=== PATIENT | male | born 1965 | race Caucasian/White ===

== ENCOUNTER 2020-01-24 20:39 | Inpatient (IN) | payer OTHER ==
[2020-01-24 20:49] VITALS: BMI 32.3
[2020-01-24] MEDS ORDERED: methylPREDNISolone NA SUCC 125 MG/2 ML VIAL IVPUSH ONE (20:49)
--- NOTE | 2020-01-24 20:49 | PDOC ---
Rapid Medical Evaluation Time Seen by Provider: 01/24/20 20:45 Medical Evaluation: 01/24/20 20:45 Pt c/o:sob and wheezing since thia am, used neb and inhaler with no improvement Pt on brief exam: tachy, hypoxic, no accessory muscle usage, + exp wheeze neil Pt ordered for: duoneb x 3 , solumedrol Pt to proceed to the ED Discharge Disposition - Diagnosis Asthma Qualifiers: Asthma severity: moderate Asthma persistence: unspecified Asthma complication type: with acute exacerbation Qualified Code(s): J45.901 - Unspecified asthma with (acute) exacerbation - Referrals - Patient Instructions - Post Discharge Activity
[2020-01-24] MEDS ORDERED: methylPREDNISolone NA SUCC 125 MG/2 ML VIAL ONE (21:06)
[2020-01-24] MEDS ORDERED: ALBUTEROL SO4 2.5/IPRATROPIUM 0.5 INH SOL 3 ML VIAL.NEB. NEB ONE ×3 (21:06→23:14)
[2020-01-24] MEDS: ALBUTEROL SO4 2.5/IPRATROPIUM 0.5 INH SOL 3 ML VIAL.NEB. NEB SCH ×4 (21:09→22:23)
--- NOTE | 2020-01-24 21:12 | PDOC ---
History of Present Illness - General Chief Complaint: Shortness of Breath Stated Complaint: ASTHMA Time Seen by Provider: 01/24/20 20:45 History Source: Patient Exam Limitations: No Limitations - History of Present Illness Initial Comments: 01/24/20 21:29 54 yo M with a hx of asthma (no hx of intubation; last exacerbation 2 months ago) and HLD presents to the emergency department with SOB that began this AM. Per the patient, he states he felt SOB after awakening. He used his albuterol multiple times throughout the day without improvement. Denies recent travels but endorses recent sick contact (daughter has URI like symptoms for last 2-3 days). Endorses chest tightness and nausea. Denies the following: fevers, chills, ears/nose/throat pain, chest pain, back pain, dysuria, diarrhea, and leg pain/swelling. No recent travels, immobilizations, and surgeries. Denies new env ironmental allergies. Past History - Past Medical History Allergies/Adverse Reactions: Allergies Allergy/AdvReac Type Severity Reaction Status Date / Time No Known Allergies Allergy Verified 01/25/20 10:20 Home Medications: Ambulatory Orders Ibuprofen 600 mg PO Q6H PRN #14 tablet 04/24/16 Methadone [Dolophine -] 40 mg PO DAILY 04/24/16 Oxycodone HCl/Acetaminophen [Percocet 10-325 mg Tablet] 1 each PO QID 04/24/16 Tamsulosin HCl [Flomax] 0.4 mg PO DAILY #7 capsule 04/24/16 Asthma: Yes COPD: No Hypercholesterolemia: Yes - Psycho Social/Smoking Cessation Hx Smoking History: Former smoker Have you smoked in the past 12 months: No Information on smoking cessation initiated: No Review of Systems - Review of Systems Able to Perform ROS?: Yes Is the patient limited Yoruba proficient: No Constitutional: No: Chills, Diaphoresis, Fever, Weakness HEENTM: No: Eye Pain, Ear Pain, Nose Pain, Throat Pain, Mouth Pain Respiratory: Yes: Cough, Shortness of Breath, SOB at Rest, Wheezing. No: Productive cough, Hemoptysis Cardiac (ROS): Yes: Chest Tightness. No: Chest Pain, Lightheadedness, Palpitations ABD/GI: No: Constipated, Diarrhea, Nausea, Rectal Bleeding, Vomiting, Tarry Stools : No: Burning, Dysuria, Hematuria Musculoskeletal: No: Back Pain, Joint Pain, Neck Pain Integumentary: No: Bruising, Flushing, Rash Neurological: No: Headache, Numbness, Tingling, Tremors Psychiatric: No: Change in Appetite Endocrine: No: Unexplained Weight Loss Hematologic/Lymphatic: No: Anemia *Physical Exam - Vital Signs Last Vital Signs Temp Pulse Resp BP Pulse Ox 98.4 F 107 H 18 137/76 84 L 01/24/20 20:45 01/24/20 20:45 01/24/20 20:45 01/24/20 20:45 01/24/20 20:45 - Physical Exam General Appearance: Yes: Nourished, Appropriately Dressed, Obese. No: Apparent Distress, Intoxicated HEENT: positive: EOMI, YUDI, Normal Voice, Symmetrical, Pharynx Normal, Hearing Grossly Normal. negative: Pale Conjunctivae, Scleral Icterus (R), Scleral Icterus (L), Muffled/Hoarse voice, Pharyngeal Erythema, Tonsillar Exudate, Tonsillar Erythema, Nasal Congestion, Rhinorrhea, Sinus Tenderness, Excessive drooling Neck: positive: Trachea midline, Supple. negative: Tender, Lymphadenopathy (R), Lymphadenopathy (L) Respiratory/Chest: positive: Decreased Breath Sounds, Wheezing. negative: Chest Tender, Respiratory Distress, Accessory Muscle Use Cardiovascular: positive: Regular Rhythm, S1, S2, Tachycardia. negative: Systolic Murmur Gastrointestinal/Abdominal: positive: Normal Bowel Sounds, Flat, Soft. negative: Tender, Distended, Guarding, Rebound, Tenderness, Hernia Lymphatic: negative: Adenopathy Musculoskeletal: positive: Normal Inspection. negative: CVA Tenderness, Vertebral Tenderness Extremity: positive: Normal Capillary Refill, Normal Inspection, Normal Range of Motion. negative: Tender, Swelling, Calf Tenderness Integumentary: positive: Normal Color, Dry, Warm. negative: Swelling, Ecchymosis Neurologic: positive: Fully Oriented, Alert, Normal Mood/Affect, Motor Strength 5/5. negative: EOM Palsy, Facial Droop, Numbness ED Treatment Course - LABORATORY CBC & Chemistry Diagram: 01/25/20 07:03 01/25/20 07:03 Medical Decision Making - Medical Decision Making 54 yo M with a hx of asthma (no hx of intubation; last exacerbation 2 months ago) and HLD presents to the emergency department with SOB that began this AM. Initial vitals: Initial Vital Signs Temp Pulse Resp BP Pulse Ox 98.4 F 107 H 18 137/76 84 L 01/24/20 20:45 01/24/20 20:45 01/24/20 20:45 01/24/20 20:45 01/24/20 20:45 Work up: ddx: patient presents to the emergency department with SOB with hypoxia noted on RA. The patient was placed on a face mask with 10 L with duoneb with improvement to 96% O2. The patient will be worked up for asthma exacerbation causes. Patient was signed out to Dr. Naranjo At the time of sign out, the patient was given duoneb x4, soluderol, and 2 gram of magnesium with symptomatic improvement. Discharge - Discharge Information Problems reviewed: Yes Clinical Impression/Diagnosis: Asthma Qualifiers: Asthma severity: moderate Asthma persistence: unspecified Asthma complication type: with acute exacerbation Qualified Code(s): J45.901 - Unspecified asthma with (acute) exacerbation - Follow up/Referral - Patient Discharge Instructions - Post Discharge Activity
[2020-01-24] MEDS ORDERED: MAGNESIUM SULF 50% (8.12 MEQ/2 ML-1 GM VIAL) IVPB ONE (21:13)
--- NOTE | 2020-01-24 21:24 | PDOC ---
*Physical Exam - Vital Signs Last Vital Signs Temp Pulse Resp BP Pulse Ox 98.4 F 107 H 18 137/76 84 L 01/24/20 20:45 01/24/20 20:45 01/24/20 20:45 01/24/20 20:45 01/24/20 20:45 - Physical Exam 01/24/20 21:31 GENERAL: Awake, alert, and fully oriented, in no acute distress HEAD: No signs of trauma, normocephalic, atraumatic EYES: PERRLA, EOMI, sclera anicteric, conjunctiva clear ENT: Hearing grossly normal, nares patent, oropharynx clear without exudates. Moist mucosa NECK: Normal ROM, supple, no lymphadenopathy, JVD, or masses LUNGS: Diminished breath sounds at bases, scant exp wheezing. No distress, speaks full sentences. HEART: Regular rate and rhythm, normal S1 and S2, no murmurs, rubs or gallops, peripheral pulses normal and equal bilaterally. ABDOMEN: Soft, nontender, normoactive bowel sounds. No guarding, no rebound. No masses EXTREMITIES : Normal inspection, Normal range of motion, no edema. No clubbing or cyanosis NEUROLOGICAL: Cranial nerves II through XII grossly intact. Normal speech, normal gait, no focal sensorimotor deficits SKIN: Warm, Dry, normal turgor, no rashes or lesions noted ED Treatment Course - LABORATORY CBC & Chemistry Diagram: 01/24/20 21:30 01/24/20 21:30 Medical Decision Making - Medical Decision Making 01/24/20 21:21 54 yo M with h/o asthma, who p/w SOB, and cough. Patient endorsed by Dr. Chavez. Patient p/w SOB dry non productive cough, wheezing, and chest tightness x 1 day , not improved with home albuterol/steroid inhaler. HR 107, 84 % O2 RA, improved to 96 % with 10 L O2. Recent sick contact includes daughter with viral URI. No recent travels. Denies palpitations orthopena, PND, leg swelling/pain, N/V, F,C, urinary complaints, hematuria, BPR, abdominal pain, diarrhea, constipation, lightheadedness, weakness, sensory changes. low risk PE per wells criteria. ACS/NV r/o. Patient likely with acute asthma/ COPD exxacerbation. absent clinical evidence volume/fluid overload. R/o PNA. Will provide duoneb tx. and reassess. Ed Course: Magensium 2 mg , Duoneb, methylpred O2 99 % RA, lungs with scant exp wheezing, breathing non labored 01/24/20 21:44 01/24/20 22:34 Laboratory Tests 01/24/20 01/24/20 21:30 21:30 WBC 9.9 Hgb 14.9 Hct 44.7 Plt Count 296 Sodium 139 Potassium 4.2 BUN 11.3 Creatinine 0.7 Random Glucose 112 H 01/24/20 22:34 CXR: Unremarkable 01/24/20 23:15 Patient with continued exp wheezing, O2 90 % on RA, despite duoneb x 2, magnesium, methylpred plan to admit for continued asthma exacerbation 01/25/20 00:00 Patient endorsed to Lorna Kolb NP. Admit to Dr. Danny Choi/Rossy Babcock. Discharge - Discharge Information Problems reviewed: Yes Clinical Impression/Diagnosis: Asthma Qualifiers: Asthma severity: moderate Asthma persistence: unspecified Asthma complication type: with acute exacerbation Qualified Code(s): J45.901 - Unspecified asthma with (acute) exacerbation Condition: Stable - Admission Yes - Follow up/Referral Referrals: Sadiq Blair [Primary Care Provider] - - Patient Discharge Instructions Additional Instructions: Please return to the emergency department with any new or worsening symptoms or concerns. Please follow up with your primary care physician within 72 hours. - Post Discharge Activity
[2020-01-24 21:58] LABS: BASO % 0.8 % (0-2.0); EOS % 3.8 % (0-4.5); HEMATOCRIT 44.7 % (35.4-49); HEMOGLOBIN 14.9 GM/dL (11.7-16.9); MCH 31.1 pg (25.7-33.7); MCHC 33.4 g/dl (32.0-35.9); MEAN CELL VOLUME 93.3 fl (80-96); MEAN PLT VOLUME 7.6 fl (7.5-11.1); NEUT % 66.4 % (42.8-82.8); PLATELET COUNT 296 K/MM3 (134-434); RBC 4.79 M/mm3 (4.00-5.60); RDW 14.3 % (11.9-15.9); WHITE BLOOD COUNT 9.9 K/mm3 (4.0-10.0)
[2020-01-24] MEDS ORDERED: MAGNESIUM SULF 50% (8.12 MEQ/2 ML-1 GM VIAL) ONE (22:03)
[2020-01-24 22:14] LABS: INR 1.06 (0.83-1.09); PROTHROMBIN TIME (PATIENT) 12.5 SEC (9.7-13.0)
[2020-01-24 22:31] LABS: ALBUMIN 3.9 g/dl (3.4-5.0); BILIRUBIN,TOTAL 0.3 mg/dL (0.2-1); BLOOD UREA NITROGEN 11.3 mg/dL (7-18); CALCIUM 8.9 mg/dL (8.5-10.1); CREATININE 0.7 mg/dL (0.55-1.3); POTASSIUM 4.2 mmol/L (3.5-5.1); TOT PROT 7.6 g/dl (6.4-8.2)
--- NOTE | 2020-01-24 22:36 | PDOC ---
Attending Attestation - Resident Resident Name: KathyIan - ED Attending Attestation I have performed the following: I have examined & evaluated the patient, The case was reviewed & discussed with the resident, I agree w/resident's findings & plan, Exceptions are as noted - HPI HPI: 01/24/20 22:36 54 yo male h/o asthma here with sob. pt states he has frequent exacerbations. was here 2 mo ago for same. today started wheezing. does have sick contact of his neice who was sick. pt denies fever. no rash. no travel. no known riojas exposure. no leg swelling. no cp 01/25/20 00:16 - Physicial Exam PE: 01/25/20 2200 awake mild accessory m use. wheezing bilat lung padron. heart rrr no mrg abd soft nt nd ext wwp no edema. symmetric pulses bilaterally. nuero alert oriented x 3. - Medical Decision Making 01/25/20 00:18 54 yo male h/o asthma here with asthma exacerbation. afebrile. plan nebs magnesium, labs cxr. pt given serial nebs and steroids, mag, mild improvement, due to extreme presentation and hypoxic on presentation will admit.
--- NOTE | 2020-01-25 | HP ---
Admitting History and Physical - Primary Care Physician PCP: Danny Potter - Admission Chief Complaint: SOB, Wheezing History of Present Illness: This is a 54 y/o male with a PMHx of asthma (no hx of intubation; last exacerbation 2 months ago) and HLD presents to the emergency department with SOB that began this AM. Per the patient, he states he felt SOB after awakening. He used his albuterol multiple times throughout the day without improvement. Denies recent travels but endorses recent sick contact (daughter has URI like symptoms for last 2-3 days). Endorses chest tightness and nausea. Denies the following: fevers, chills, ears/nose/throat pain, chest pain, back pain, dysuria, diarrhea, and leg pain/swelling. No recent travels, immobilizations, and surgeries. Denies new environmental allergies. History Source: Patient Limitations to Obtaining History: No Limitations - Past Medical History Cardiovascular: Yes: Hyperlipdemia Pulmonary: Yes: Asthma - Smoking History Smoking history: Former smoker Have you smoked in the past 12 months: No Home Medications - Allergies Allergies/Adverse Reactions: Allergies Allergy/AdvReac Type Severity Reaction Status Date / Time No Known Allergies Allergy Verified 01/24/20 20:49 Family Medical History Family History: Unremarkable Review of Systems - Review of Systems Constitutional: reports: No Symptoms Eyes: reports: No Symptoms HENT: reports: No Symptoms Neck: reports: No Symptoms Cardiovascular: reports: Shortness of Breath Respiratory: reports: Cough, Exercise Intolerance, SOB, SOB on Exertion, Wheezing Gastrointestinal: reports: No Symptoms Genitourinary: reports: No Symptoms Breasts: reports: No Symptoms Reported Musculoskeletal: reports: No Symptoms Integumentary: reports: No Symptoms Neurological: reports: No Symptoms Endocrine: reports: No Symptoms Hematology/Lymphatic: reports: No Symptoms Psychiatric: reports: No Symptoms Physical Examination Vital Signs: Vital Signs Temperature 98.4 F 01/24/20 20:45 Pulse Rate 114 H 01/24/20 23:51 Respiratory Rate 18 01/24/20 20:45 Blood Pressure 144/89 01/24/20 23:51 O2 Sat by Pulse Oximetry (%) 83 L 01/24/20 23:51 Constitutional: Yes: Mild Distress, Obese Eyes: Yes: WNL, Conjunctiva Clear, EOM Intact, PERRL HENT: Yes: WNL, Atraumatic, Normocephalic Neck: Yes: WNL, Supple, Trachea Midline Cardiovascular: Yes: Tachycardia, S1, S2 Respiratory: Yes: Cough, On Nasal O2, Rhonchi, SOB, Tachypnea, Wheezes Gastrointestinal: Yes: WNL, Normal Bowel Sounds, Soft, Abdomen, Obese ...Rectal Exam: Yes: Deferred Renal/: Yes: WNL Breast(s): Yes: WNL Musculoskeletal: Yes: WNL Extremities: Yes: WNL Edema: No Neurological: Yes: WNL, Alert, Oriented ...Motor Strength: WNL Psychiatric: Yes: WNL, Alert, Oriented Labs: CBC, BMP 01/24/20 21:30 01/24/20 21:30 Laboratory Results - last 24 hr 01/24/20 01/24/20 01/24/20 21:30 21:30 21:30 WBC 9.9 RBC 4.79 Hgb 14.9 Hct 44.7 MCV 93.3 MCH 31.1 MCHC 33.4 RDW 14.3 Plt Count 296 MPV 7.6 Absolute Neuts (auto) 6.6 Neutrophils % 66.4 Lymphocytes % 22.0 Monocytes % 7.0 Eosinophils % 3.8 Basophils % 0.8 Nucleated RBC % 0 PT with INR INR Sodium 139 Potassium 4.2 Chloride 103 Carbon Dioxide 31 Anion Gap 6 L BUN 11.3 Creatinine 0.7 Est GFR (CKD-EPI)AfAm 122.27 Est GFR (CKD-EPI)NonAf 105.50 Random Glucose 112 H Calcium 8.9 Total Bilirubin 0.3 AST 23 ALT 43 Alkaline Phosphatase 106 Creatine Kinase 116 Troponin I < 0.02 Total Protein 7.6 Albumin 3.9 01/24/20 21:30 WBC RBC Hgb Hct MCV MCH MCHC RDW Plt Count MPV Absolute Neuts (auto) Neutrophils % Lymphocytes % Monocytes % Eosinophils % Basophils % Nucleated RBC % PT with INR 12.50 INR 1.06 Sodium Potassium Chloride Carbon Dioxide Anion Gap BUN Creatinine Est GFR (CKD-EPI)AfAm Est GFR (CKD-EPI)NonAf Random Glucose Calcium Total Bilirubin AST ALT Alkaline Phosphatase Creatine Kinase Troponin I Total Protein Albumin Intake & Output 01/22/20 01/23/20 01/24/20 01/25/20 23:59 23:59 23:59 23:59 Weight 90.718 kg Current Medications Generic Name Dose Route Start Last Admin Trade Name Freq PRN Reason Stop Dose Admin Albuterol/Ipratropium 1 amp 01/25/20 08:00 Duoneb - NEB RQID YASIR Methylprednisolone Sodium Succinate 40 mg 01/25/20 03:00 Solu-Medrol - IVPUSH Q6H-IV YASIR Imaging - Results Chest X-ray: Image Reviewed Cat Scan: Pending Problem List - Problems (1) Asthma exacerbation Assessment/Plan: Appreciate Pulm consult Chest Xray reviewed Duonebs, Solumederol, Magnesium Sulfate given in ED Will continue Duonebs Xopenox prn if patient is tachycardic Continue Solumederol w/taper Bipap O2 Peakflow CTA report- neg PE, no dissection, no infiltrates Code(s): J45.901 - UNSPECIFIED ASTHMA WITH (ACUTE) EXACERBATION (2) Acute respiratory failure with hypoxia Assessment/Plan: Likely secondary to Asthma Flare vs COPD vs PE vs Pneumonia Patient becomes severely hypoxic on RA suspicious for COPD ABG- 7.38/42.9/71.1/25.4/93.9 concerning for hypoxia Chest Xray image- no infiltrate no effusion noted CTA image and report reviewed- no PE, no aortic dissection, no infitrate BIPAP Appreciate Pulmonology consult Monitor CBC, BMP Patient counseled on smoking cessation Code(s): J96.01 - ACUTE RESPIRATORY FAILURE WITH HYPOXIA (3) Lactic acidosis Assessment/Plan: Likely due to Respiratory Failure vs Medication Blood Cultures-pending Urine and Urine Culture ordered NS bolus ordered Repeat Lactic Acid No leukocytosis no left shift Chest Xray- no infiltrate no effusion CTA- neg PE, Infiltrate Monitor vitals Code(s): E87.2 - ACIDOSIS (4) Elevated troponin Assessment/Plan: Likely secondary to Sepsis Patient denies CP or Palpitations Serial enzymes Consider Cardiology consult if condition worsens Code(s): R79.89 - OTHER SPECIFIED ABNORMAL FINDINGS OF BLOOD CHEMISTRY Assessment/Plan this is a 54 y/o male with a PMHx of Asthma, HLD. Admitted for Asthma Exacerbation, Acute Respiratory Failure with Hypoxia for further evaluation of their emergent condition. Plan: See Problem List FEN PO fluids as tolerated Replete lytes prn DVT ppx OOB SCDs Heparin SQ Dispo: Requires Inpatient Care Visit type - Emergency Visit Emergency Visit: Yes ED Registration Date: 01/24/20 Care time: The patient presented to the Emergency Department on the above date and was hospitalized for further evaluation of their emergent condition. - New Patient This patient is new to me today: Yes Date on this admission: 01/24/20 - Critical Care Critical Care patient: No
[2020-01-25] MEDS ORDERED: methylPREDNISolone NA SUCC 40 MG/1 ML VIAL IVPUSH SCH ×2 (03:00→09:00)
[2020-01-25] MEDS ORDERED: LEVALBUTEROL HCL 0.63 MG/3 ML VIAL.NEB. IH PRN ×2 (03:46→07:55)
[2020-01-25 04:01] LABS: ARTERIAL BLD GAS O2 SATURATION 93.9 % (95-98); ARTERIAL BLOOD GAS BASE EXCESS 0.7 meq/l (-2-2); ARTERIAL BLOOD GAS PCO2 42.9 mmHg (35-45); ARTERIAL BLOOD GAS PO2 71.1 mmHg (80-100); ARTERIAL BLOOD GAS pH 7.38 (7.35-7.45); CARBOXYHEMOGLOBIN 0.9 % (0-2)
[2020-01-25 04:02] LABS: ALLENS TEST POSITIVE
[2020-01-25] MEDS ORDERED: SODIUM CHLORIDE 1,000 ML IV ONE ×2 (05:15→07:55)
--- NOTE | 2020-01-25 07:19 | RAPID ---
Physical Examination Vital Signs: Rapid resposne paged overhead On arrival patient on BIPAP saturating 77%. As per nursing staff patient was rec eiving wide open IVF bolus, had received ~300cc fluid and began desaturating to 70-80s. BPs 130s/70s. Mild tachycardia to 110s. EKG showed sinus tach 109, no ischemic changes. On phys exam b/l wheezing, poor entry b/l, using access muscles but speaking full sentences, on BIPAP: I/E 12/6 Sats improved to 92% after a few minutes. Instructed nursing staff to hold fluid bolus. Plan: -Ordered stat ABG, trop, CBC/CMP with morning labs -Stat CXR -transfer to telemetry
[2020-01-25 07:28] LABS: BASO % 0.3 % (0-2.0); HEMOGLOBIN 15.6 GM/dL (11.7-16.9); LYMPH % 8.3 % (8-40); MCH 31.6 pg (25.7-33.7); MEAN CELL VOLUME 92.8 fl (80-96); MEAN PLT VOLUME 7.5 fl (7.5-11.1); MONO % 0.9 % (3.8-10.2); NEUT % 90.5 % (42.8-82.8); PLATELET COUNT 304 K/MM3 (134-434); RBC 4.96 M/mm3 (4.00-5.60); RDW 14.7 % (11.9-15.9)
[2020-01-25 07:48] LABS: ALBUMIN 4.1 g/dl (3.4-5.0); ALK PHOS 118 U/L (45-117); ANION GAP 9 MMOL/L (8-16); BILIRUBIN,TOTAL 0.5 mg/dL (0.2-1); BLOOD UREA NITROGEN 8.7 mg/dL (7-18); CALCIUM 8.7 mg/dL (8.5-10.1); CHLORIDE 105 mmol/L (98-107); CO2 27 mmol/L (21-32); CREATININE 0.7 mg/dL (0.55-1.3); GLUCOSE,RANDOM 150 mg/dL (74-106); MAGNESIUM 2.3 mg/dL (1.8-2.4); POTASSIUM 4.2 mmol/L (3.5-5.1); SGOT/AST 28 U/L (15-37); SGPT/ALT 46 U/L (13-61); SODIUM 140 mmol/L (136-145); TOT PROT 8.7 g/dl (6.4-8.2)
[2020-01-25] MEDS ORDERED: ALBUTEROL SO4 2.5/IPRATROPIUM 0.5 INH SOL 3 ML VIAL.NEB. NEB SCH (08:00)
[2020-01-25] MEDS ORDERED: PNEUMOC 13-VAL CONJ-DIP CRM/PF 0.5 ML DISP.SYRIN IM ONE (08:07)
[2020-01-25] MEDS: ALBUTEROL SO4 2.5/IPRATROPIUM 0.5 INH SOL 3 ML VIAL.NEB. NEB SCH ×4 (09:00→20:25)
[2020-01-25] MEDS ORDERED: AZITHROMYCIN IVPB 500 MG/250 ML BAG IVPB ONE (09:35)
--- NOTE | 2020-01-25 09:37 | PN ---
Progress Note, Physician Chief Complaint: AWAK ALERT ON BIPAP HERE IN TELEMETRY AFTER RAPID RESPONSE ON GRAVES 6 PATIENT IS AWAKE FEELS BETTER AND DENIES CHEST PAIN OR ABD PAIN LABS/CTA/CXR/ABG REVIEWED - Current Medication List Current Medications: Active Medications Albuterol/Ipratropium (Duoneb -) 1 amp NEB RQID [facility] Last Admin: 01/25/20 09:00 Dose: 1 amp Documented by: Levalbuterol HCl (Xopenex) 0.63 mg IH Q8H PRN PRN Reason: ASTHMA Methylprednisolone Sodium Succinate (Solu-Medrol -) 40 mg IVPUSH Q6H-IV YASIR Last Admin: 01/25/20 08:51 Dose: 40 mg Documented by: Pneumococcal Polyvalent Vaccine (Pneumovax -) 0.5 ml IM .ONCE ONE Stop: 01/25/20 10:01 - Objective Vital Signs: Vital Signs Temperature 98.7 F 01/25/20 08:10 Pulse Rate 127 H 01/25/20 08:10 Respiratory Rate 22 H 01/25/20 08:10 Blood Pressure 147/85 01/25/20 08:10 O2 Sat by Pulse Oximetry (%) 98 01/25/20 08:10 Constitutional: Yes: Mild Distress Cardiovascular: Yes: Regular Rate and Rhythm Respiratory: Yes: On BiPap, Rhonchi Gastrointestinal: Yes: WNL, Soft Genitourinary: Yes: WNL Musculoskeletal: Yes: WNL Extremities: Yes: WNL Edema: No Wound/Incision: Yes: Clean/Dry Neurological: Yes: WNL, Weakness Psychiatric: Yes: WNL Labs: CBC, BMP 01/25/20 07:03 01/25/20 07:03 INR, PTT INR 1.06 (0.83-1.09) 01/24/20 21:30 Problem List - Problems (1) Acute respiratory failure with hypoxia Code(s): J96.01 - ACUTE RESPIRATORY FAILURE WITH HYPOXIA (2) Asthma exacerbation Code(s): J45.901 - UNSPECIFIED ASTHMA WITH (ACUTE) EXACERBATION (3) Lactic acidosis Code(s): E87.2 - ACIDOSIS Assessment/Plan LABS REVIEWED LACTIC ACID STILL ELEVATED ADDING NS 100 CCHR CEFTRIAXONE/AZITHROMYCIN IV BIPAP NEEDED PULM EVAL OOB TO CHAIR DVT PROPHYLAXIS CTA NEGATIVE FOR PE, CXR NO ACUTE CHANGE LIKELY MUCUS PLUG?
[2020-01-25 09:45] LABS: EPI CELLS 0.5 /HPF (0-5/HPF); HYALINE CASTS 4 /lpf (0-8); URINE APPEARANCE CLEAR; URINE BACTERIA 0.3 /hpf (NEGATIVE); URINE BILIRUBIN NEGATIVE (NEGATIVE); URINE COLOR YELLOW; URINE GLUCOSE (UA) NEGATIVE (NEGATIVE); URINE KETONE TRACE (NEGATIVE); URINE LEUK ESTERASE NEGATIVE (NEGATIVE); URINE NITRITE NEGATIVE (NEGATIVE); URINE PROTEIN NEGATIVE (NEGATIVE); URINE RBC 2 /hpf (0-4); URINE UROBILINOGEN 0.2 mg/dL (0.2-1.0); URINE WBC 2 /hpf (0-5)
[2020-01-25] MEDS ORDERED: DEXTROSE 5%-WATER - 50 ML IVPB ONE (09:56)
[2020-01-25] MEDS ORDERED: cefTRIAXone SODIUM 1 GM VIAL ONE (09:56)
[2020-01-25] MEDS ORDERED: PNEUMOCOCCAL 23 VACCINE 0.5 ML VIAL IM ONE (10:00)
[2020-01-25] MEDS: SODIUM CHLORIDE 1,000 ML IV SCH ×2 (10:04→21:35)
[2020-01-25] MEDS: CEFTRIAXONE 1 GM in DEXTROSE 5%-WATER - 50 ML IVPB SCH (10:05)
[2020-01-25 10:18] LABS: ARTERIAL BLD GAS O2 SATURATION 98.8 % (95-98); ARTERIAL BLOOD GAS BASE EXCESS 0.4 meq/l (-2-2); ARTERIAL BLOOD GAS PCO2 55.5 mmHg (35-45); ARTERIAL BLOOD GAS PO2 167 mmHg (80-100); ARTERIAL BLOOD GAS pH 7.32 (7.35-7.45)
[2020-01-25 10:19] LABS: ALLENS TEST POSITIVE
[2020-01-25] MEDS ORDERED: METHADONE HCL 40 MG DISPERSABLE TABLET ONE (11:47)
[2020-01-25] MEDS ORDERED: METHADONE HCL 10 MG TABLET ONE (11:48)
[2020-01-25] MEDS: METHADONE 40 MG, METHADONE 10 MG PO SCH (11:57)
--- NOTE | 2020-01-25 12:50 | CON.PULM ---
Consult Consult Specialty:: PULM/CCM Referred by:: JOHAN Reason for Consultation:: SOB - History of Present Illness Chief Complaint: SOB History of Present Illness: 54 M, Mild Persistent Asthma (no hx of intubation; not steroid dependent; unknown PEF; last exacerbation 2 months ago) previous 20 pack year smoker that quit 20 years ago and HLD. Admitted via the ER due to SOB and wheezing x 1 day duration. No travel history or sick contacts. No fever or chills. No hemoptysis or night sweats. CTA: no PE / no acute lung pathology - History Source History Provided By: Patient Limitations to Obtaining History: No Limitations - Past Medical History Cardio/Vascular: Yes: Hyperlipdemia Pulmonary: Yes: Asthma, Bronchitis, Pneumonia. No: Cancer, COPD, O2 Dependent, Previously Intubated, Pulmonary Embolus, Pulmonary Fibrosis - Alcohol/Substance Use Hx Alcohol Use: Yes (Social) - Smoking History Smoking history: Former smoker Have you smoked in the past 12 months: No Home Medications - Allergies Allergies/Adverse Reactions: Allergies Allergy/AdvReac Type Severity Reaction Status Date / Time No Known Allergies Allergy Verified 01/25/20 10:20 - Home Medications Home Medications: Ambulatory Orders Ibuprofen 600 mg PO Q6H PRN #14 tablet 04/24/16 Methadone [Dolophine -] 40 mg PO DAILY 04/24/16 Oxycodone HCl/Acetaminophen [Percocet 10-325 mg Tablet] 1 each PO QID 04/24/16 Tamsulosin HCl [Flomax] 0.4 mg PO DAILY #7 capsule 04/24/16 Review of Systems - Review of Systems Constitutional: reports: Malaise. denies: Chills, Fever, Night Sweats Eyes: reports: No Symptoms HENT: reports: No Symptoms Neck: reports: No Symptoms Cardiovascular: reports: Shortness of Breath. denies: Chest Pain, Edema, Palpitations Respiratory: reports: Cough, Snoring, SOB, SOB on Exertion, Wheezing. denies: Hemoptysis, Orthopnea Gastrointestinal: reports: No Symptoms Genitourinary: reports: No Symptoms Breasts: reports: No Symptoms Reported Musculoskeletal: reports: No Symptoms Integumentary: reports: No Symptoms Neurological: reports: No Symptoms Endocrine: reports: No Symptoms Hematology/Lymphatic: reports: No Symptoms Psychiatric: reports: No Symptoms Physical Exam Vital Sings: Vital Signs Temperature 98.2 F 01/25/20 10:00 Pulse Rate 110 H 01/25/20 10:00 Respiratory Rate 24 H 01/25/20 10:00 Blood Pressure 141/83 01/25/20 10:00 O2 Sat by Pulse Oximetry (%) 98 01/25/20 09:00 Constitutional: Yes: Mild Distress Eyes: Yes: Conjunctiva Clear, EOM Intact HENT: Yes: Atraumatic, Normocephalic Neck: Yes: Supple, Trachea Midline Cardiovascular: Yes: Regular Rate and Rhythm Respiratory: Yes: Cough, On BiPap, Rhonchi, SOB, SOB on Exertion, Tachypnea, Wheezes. No: Accessory Muscle Use, Rales, Stridor ...Inspection: Yes: WNL ...Clubbing: No Gastrointestinal: Yes: Normal Bowel Sounds, Soft Breast(s): Yes: WNL Musculoskeletal: Yes: WNL Extremities: Yes: WNL Edema: No Peripheral Pulses WNL: Yes Integumentary: Yes: WNL Neurological: Yes: WNL, Alert, Oriented ...Motor Strength: WNL Psychiatric: Yes: WNL, Alert, Oriented Labs: CBC, BMP 01/25/20 07:03 01/25/20 07:03 ABG Results ABG pH 7.32 (7.35-7.45) L 01/25/20 08:10 ABG pH Cancelled 01/25/20 08:10 ABG pH Cancelled 01/25/20 08:10 ABG pCO2 at Pt Temp 55.5 mmHg (35-45) H 01/25/20 08:10 ABG pCO2 at Pt Temp Cancelled 01/25/20 08:10 ABG pCO2 at Pt Temp Cancelled 01/25/20 08:10 ABG pO2 at Pt Temp 167 mmHg (80-100) H 01/25/20 08:10 ABG pO2 at Pt Temp Cancelled 01/25/20 08:10 ABG pO2 at Pt Temp Cancelled 01/25/20 08:10 ABG HCO3 27.5 mmol/L (22-27) H 01/25/20 08:10 ABG HCO3 Cancelled 01/25/20 08:10 ABG HCO3 Cancelled 01/25/20 08:10 ABG O2 Sat (Measured) 98.8 % (95-98) H 01/25/20 08:10 ABG O2 Sat (Measured) Cancelled 01/25/20 08:10 ABG O2 Sat (Measured) Cancelled 01/25/20 08:10 ABG O2 Content 22.1 % vol 01/25/20 08:10 ABG O2 Content Cancelled 01/25/20 08:10 ABG O2 Content Cancelled 01/25/20 08:10 ABG Base Excess 0.4 meq/l (-2-2) 01/25/20 08:10 ABG Base Excess Cancelled 01/25/20 08:10 ABG Base Excess Cancelled 01/25/20 08:10 Imaging - Results Chest X-ray: Report Reviewed, Image Reviewed Cat Scan: Report Reviewed, Image Reviewed Problem List - Problems (1) Acute hypercapnic respiratory failure Code(s): J96.02 - ACUTE RESPIRATORY FAILURE WITH HYPERCAPNIA (2) Asthma Code(s): J45.909 - UNSPECIFIED ASTHMA, UNCOMPLICATED Qualifiers: Asthma severity: moderate Asthma persistence: unspecified Asthma comp lication type: with acute exacerbation Qualified Code(s): J45.901 - Unspecified asthma with (acute) exacerbation (3) Asthma exacerbation Code(s): J45.901 - UNSPECIFIED ASTHMA WITH (ACUTE) EXACERBATION (4) Elevated troponin Code(s): R79.89 - OTHER SPECIFIED ABNORMAL FINDINGS OF BLOOD CHEMISTRY Assessment/Plan NIPPV support IV Medrol BD TX standing and PRN Monitor off ABX once cultures are negative VTE prophylaxis No smoking was counseled Outpatient PFTs once stable Sleep Screen Cardiac telemetry monitoring Will follow Thank you. Dr Vinson VERONICA Screen - VERONICA History Previously diagnosed with Sleep Apnea: No If Yes, currently using CPAP to treat your VERONICA: No - SNORING Do you snore loudly (enough to be heard thru closed doors)?: Yes - TIRED Do you often feel tired, fatigued, or sleepy during daytime?: Yes - OBSERVED Has anyone observed you stop breathing during your sleep?: Yes - BLOOD PRESSURE Do you have or are being treated for high blood pressure?: No - BMI Answer Y if weight exceeds amount listed for your height: No .: HEIGHT & WEIGHT (lbs): 4'10" 167lbs; 4'11" 175 lbs; 5'0" 179lbs;. 5'1" 185lbs; 5'2" 191lbs; 5'3" 197lbs;. 5'4" 204lbs; 5'5" 210lbs; 5'6" 216lbs;. 5'7" 223lbs; 5'8" 230lbs; 5'9" 237lbs;. 5'10" 243lbs; 5'11" 250lbs; 6' 258lbs;. 6'1" 265lbs; 6'2" 272lbs; 6'3" 279lbs;. 6'4" 287lbs; 6'5" 295lbs - AGE Is your age over 50 yrs old?: Yes - NECK CIRCUMFERENCE Neck Circumference 40cm: No - GENDER Male: Yes - SCORE Total Score: 5 Score Interpretation: High Risk of VERONICA .: Interpretation: Score 0-2: Low Risk VERONICA. Score 3-4: Intermediate Risk VERONICA. Score 5-8: High Risk VERONICA
--- NOTE | 2020-01-25 13:59 | EKG ---
Test Reason : Blood Pressure : / mmHG Vent. Rate : 109 BPM Atrial Rate : 109 BPM P-R Int : 166 ms QRS Dur : 072 ms QT Int : 338 ms P-R-T Axes : 074 079 068 degrees QTc Int : 455 ms POOR DATA QUALITY, INTERPRETATION MAY BE ADVERSELY AFFECTED SINUS TACHYCARDIA POSSIBLE LEFT ATRIAL ENLARGEMENT BORDERLINE ECG WHEN COMPARED WITH ECG OF 25-JAN-2020 01:43, NO SIGNIFICANT CHANGE WAS FOUND Confirmed by QIANA BARNES, KURT ([id number]) on 01/25/2020 1:58:48 PM Referred By: Confirmed By:KURT KIRAN MD
--- NOTE | 2020-01-25 14:00 | EKG ---
Test Reason : Blood Pressure : / mmHG Vent. Rate : 096 BPM Atrial Rate : 096 BPM P-R Int : 170 ms QRS Dur : 074 ms QT Int : 386 ms P-R-T Axes : 074 065 068 degrees QTc Int : 487 ms NORMAL SINUS RHYTHM PROLONGED QT ABNORMAL ECG NO PREVIOUS ECGS AVAILABLE Confirmed by QIANA BARNES, KURT ([id number]) on 01/25/2020 1:59:26 PM Referred By: Confirmed By:KURT KIRAN MD
[2020-01-25] MEDS: methylPREDNISolone NA SUCC 40 MG/1 ML VIAL IVPUSH SCH ×2 (14:25→21:12)
[2020-01-26] MEDS: methylPREDNISolone NA SUCC 40 MG/1 ML VIAL IVPUSH SCH ×3 (03:07→17:57)
[2020-01-26] MEDS ORDERED: METHADONE HCL 10 MG TABLET ONE (05:23)
[2020-01-26] MEDS ORDERED: METHADONE HCL 40 MG DISPERSABLE TABLET ONE (05:23)
[2020-01-26] MEDS: METHADONE 40 MG, METHADONE 10 MG PO SCH (05:29)
[2020-01-26] MEDS: ALBUTEROL SO4 2.5/IPRATROPIUM 0.5 INH SOL 3 ML VIAL.NEB. NEB SCH ×4 (07:25→21:15)
[2020-01-26] MEDS ORDERED: DEXTROSE 5%-WATER - 50 ML IVPB ONE (09:00)
[2020-01-26] MEDS ORDERED: cefTRIAXone SODIUM 1 GM VIAL ONE (09:00)
[2020-01-26] MEDS: SODIUM CHLORIDE 1,000 ML IV SCH ×2 (09:13→21:00)
[2020-01-26] MEDS: CEFTRIAXONE 1 GM in DEXTROSE 5%-WATER - 50 ML IVPB SCH (09:14)
--- NOTE | 2020-01-26 10:44 | PN ---
Progress Note, Physician History of Present Illness: pulmonary alert,feeling better,less dyspneic on nasal O2 - Current Medication List Current Medications: Active Medications Albuterol/Ipratropium (Duoneb -) 1 amp NEB RQID [facility] Last Admin: 01/26/20 07:25 Dose: 1 amp Documented by: Ceftriaxone Sodium 1 gm/ (Dextrose) 50 mls @ 200 mls/hr IVPB DAILY [facility]; Protocol Last Admin: 01/26/20 09:14 Dose: 200 mls/hr Documented by: Sodium Chloride (Normal Saline -) 1,000 mls @ 100 mls/hr IV ASDIR [facility] Last Admin: 01/26/20 09:13 Dose: 100 mls/hr Documented by: Levalbuterol HCl (Xopenex) 0.63 mg IH Q8H PRN PRN Reason: ASTHMA Methadone HCl 40 mg/ Methadone (HCl 10 mg) 50 mg PO 0600 [facility] Last Admin: 01/26/20 05:29 Dose: 50 mg Documented by: Methylprednisolone Sodium Succinate (Solu-Medrol -) 60 mg IVPUSH Q6H-IV [facility] Last Admin: 01/26/20 09:14 Dose: 60 mg Documented by: - Objective Vital Signs: Vital Signs Temperature 98.6 F 01/26/20 09:07 Pulse Rate 101 H 01/26/20 09:07 Respiratory Rate 20 01/26/20 09:07 Blood Pressure 120/74 01/26/20 09:07 O2 Sat by Pulse Oximetry (%) 97 01/26/20 08:29 Constitutional: Yes: Well Nourished, Calm Eyes: Yes: WNL HENT: Yes: WNL Neck: Yes: WNL Cardiovascular: Yes: Regular Rate and Rhythm, S1, S2 Respiratory: Yes: Wheezes (SCATTERED SHANTANU WHEEZES) Gastrointestinal: Yes: Normal Bowel Sounds, Soft Extremities: Yes: WNL Edema: No Labs: CBC, BMP Problem List - Problems (1) Lactic acidosis Code(s): E87.2 - ACIDOSIS Assessment/Plan Problem List - Problems (1) Acute hypercapnic respiratory failure Code(s): J96.02 - ACUTE RESPIRATORY FAILURE WITH HYPERCAPNIA (2) Asthma Code(s): J45.909 - UNSPECIFIED ASTHMA, UNCOMPLICATED Qualifiers: Asthma severity: moderate Asthma persistence: unspecified Asthma complication type: with acute exacerbation Qualified Code(s): J45.901 - Unspecified asthma with (acute) exacerbation (3) Asthma exacerbation Code(s): J45.901 - UNSPECIFIED ASTHMA WITH (ACUTE) EXACERBATION (4) Elevated troponin Code(s): R79.89 - OTHER SPECIFIED ABNORMAL FINDINGS OF BLOOD CHEMISTRY 5 ELEVATED LACTATE LEVEL Assessment/Plan NIPPV support as needed IV Medrol taper BD TX standing and PRN VTE prophylaxis No smoking was counseled Outpatient PFTs once stable Trend lactate Sleep Screen DR RAGLAND
[2020-01-26] MEDS ORDERED: PT OWN MED DRAWER 7, Y5N ONE (12:54)
--- NOTE | 2020-01-26 13:10 | PN ---
Progress Note, Physician Chief Complaint: AWAKE ALERT\FEELS BETTER SOB CONTROLLED ON NC 4L - Current Medication List Current Medications: Active Medications Albuterol/Ipratropium (Duoneb -) 1 amp NEB RQID [facility] Last Admin: 01/26/20 11:21 Dose: 1 amp Documented by: Ceftriaxone Sodium 1 gm/ (Dextrose) 50 mls @ 200 mls/hr IVPB DAILY [facility]; Protocol Last Admin: 01/26/20 09:14 Dose: 200 mls/hr Documented by: Sodium Chloride (Normal Saline -) 1,000 mls @ 100 mls/hr IV ASDIR [facility] Last Admin: 01/26/20 09:13 Dose: 100 mls/hr Documented by: Azithromycin 250 mg/ Dextrose 250 mls @ 250 mls/hr IVPB DAILY [facility] Levalbuterol HCl (Xopenex) 0.63 mg IH Q8H PRN PRN Reason: ASTHMA Methadone HCl 40 mg/ Methadone (HCl 10 mg) 50 mg PO 0600 [facility] Last Admin: 01/26/20 05:29 Dose: 50 mg Documented by: Methylprednisolone Sodium Succinate (Solu-Medrol -) 60 mg IVPUSH Q8H-IV [facility] - Objective Vital Signs: Vital Signs Temperature 98.6 F 01/26/20 09:07 Pulse Rate 101 H 01/26/20 09:07 Respiratory Rate 20 01/26/20 09:07 Blood Pressure 120/74 01/26/20 09:07 O2 Sat by Pulse Oximetry (%) 97 01/26/20 09:00 Constitutional: Yes: Mild Distress Cardiovascular: Yes: Regular Rate and Rhythm Respiratory: Yes: Wheezes Gastrointestinal: Yes: Soft Genitourinary: Yes: WNL Musculoskeletal: Yes: Muscle Weakness Edema: No Neurological: Yes: WNL Labs: CBC, BMP 01/25/20 07:03 01/25/20 07:03 INR, PTT INR 1.06 (0.83-1.09) 01/24/20 21:30 Problem List - Problems (1) Asthma exacerbation Code(s): J45.901 - UNSPECIFIED ASTHMA WITH (ACUTE) EXACERBATION (2) Acute respiratory failure with hypoxia Code(s): J96.01 - ACUTE RESPIRATORY FAILURE WITH HYPOXIA (3) Lactic acidosis Code(s): E87.2 - ACIDOSIS Assessment/Plan O2 SUPPORT PULMONARY CONSULT APPRECIATED IV STEROIDS IV CEFTRIAXONE/AZITHROMYCIN NEBS OOB TO CHAIR DVT PROPHYLAXIS
[2020-01-26] MEDS: AZITHROMYCIN IVPB 250 MG in DEXTROSE 5%-WATER - 250 ML IVPB SCH (14:52)
[2020-01-27] MEDS: methylPREDNISolone NA SUCC 40 MG/1 ML VIAL IVPUSH SCH ×3 (01:34→17:21)
[2020-01-27] MEDS ORDERED: METHADONE HCL 40 MG DISPERSABLE TABLET ONE (05:17)
[2020-01-27] MEDS ORDERED: METHADONE HCL 10 MG TABLET ONE (05:18)
[2020-01-27] MEDS: METHADONE 40 MG, METHADONE 10 MG PO SCH (06:00)
[2020-01-27] MEDS: SODIUM CHLORIDE 1,000 ML IV SCH ×2 (07:00→09:34)
[2020-01-27 07:48] LABS: HEMATOCRIT 41.5 % (35.4-49); HEMOGLOBIN 13.9 GM/dL (11.7-16.9); MCH 31.5 pg (25.7-33.7); MCHC 33.5 g/dl (32.0-35.9); MEAN PLT VOLUME 7.8 fl (7.5-11.1); PLATELET COUNT 292 K/MM3 (134-434); RBC 4.42 M/mm3 (4.00-5.60); RDW 14.8 % (11.9-15.9); WHITE BLOOD COUNT 20.5 K/mm3 (4.0-10.0)
[2020-01-27] MEDS: ALBUTEROL SO4 2.5/IPRATROPIUM 0.5 INH SOL 3 ML VIAL.NEB. NEB SCH ×4 (07:57→20:00)
[2020-01-27 08:07] LABS: BLOOD UREA NITROGEN 12.9 mg/dL (7-18); CALCIUM 8.5 mg/dL (8.5-10.1); CREATININE 0.5 mg/dL (0.55-1.3); POTASSIUM 4.4 mmol/L (3.5-5.1)
[2020-01-27] MEDS ORDERED: PT OWN MED DRAWER 7, Y5N ONE ×2 (09:31→11:20)
[2020-01-27] MEDS ORDERED: DEXTROSE 5%-WATER - 50 ML IVPB ONE (09:31)
[2020-01-27] MEDS ORDERED: cefTRIAXone SODIUM 1 GM VIAL ONE (09:31)
[2020-01-27] MEDS: CEFTRIAXONE 1 GM in DEXTROSE 5%-WATER - 50 ML IVPB SCH (09:34)
--- NOTE | 2020-01-27 09:57 | PN ---
Progress Note, Physician History of Present Illness: C/O COUGH BETTER - Current Medication List Current Medications: Active Medications Albuterol/Ipratropium (Duoneb -) 1 amp NEB RQID [facility] Last Admin: 01/26/20 21:15 Dose: 1 amp Documented by: Ceftriaxone Sodium 1 gm/ (Dextrose) 50 mls @ 200 mls/hr IVPB DAILY [facility]; Protocol Last Admin: 01/27/20 09:34 Dose: 200 mls/hr Documented by: Sodium Chloride (Normal Saline -) 1,000 mls @ 100 mls/hr IV ASDIR [facility] Last Admin: 01/27/20 09:34 Dose: 100 mls/hr Documented by: Azithromycin 250 mg/ Dextrose 250 mls @ 250 mls/hr IVPB DAILY [facility] Last Admin: 01/26/20 14:52 Dose: 250 mls/hr Documented by: Levalbuterol HCl (Xopenex) 0.63 mg IH Q8H PRN PRN Reason: ASTHMA Methadone HCl 40 mg/ Methadone (HCl 10 mg) 50 mg PO 0600 [facility] Last Admin: 01/27/20 06:00 Dose: 50 mg Documented by: Methylprednisolone Sodium Succinate (Solu-Medrol -) 60 mg IVPUSH Q8H-IV [facility] Last Admin: 01/27/20 09:34 Dose: 60 mg Documented by: - Objective Vital Signs: Vital Signs Temperature 98.2 F 01/27/20 06:00 Pulse Rate 83 01/27/20 06:00 Respiratory Rate 18 01/27/20 06:00 Blood Pressure 120/84 01/27/20 06:00 O2 Sat by Pulse Oximetry (%) 96 01/26/20 21:00 Cardiovascular: Yes: S1, S2 Respiratory: Yes: On Nasal O2, Rhonchi, Wheezes Gastrointestinal: Yes: Normal Bowel Sounds, Soft Labs: CBC, BMP 01/27/20 06:56 01/27/20 06:56 INR, PTT INR 1.06 (0.83-1.09) 01/24/20 21:30 Problem List - Problems (1) Asthma exacerbation Assessment/Plan: IV STEROIDS NEBS ON IV ABX CT NOTED --NO ACUTE PATH PULM ON CASE Code(s): J45.901 - UNSPECIFIED ASTHMA WITH (ACUTE) EXACERBATION (2) Acute hypercapnic respiratory failure Assessment/Plan: ABOVE FLU SWAB Code(s): J96.02 - ACUTE RESPIRATORY FAILURE WITH HYPERCAPNIA (3) Lactic acidosis Assessment/Plan: IMPROVED Code(s): E87.2 - ACIDOSIS
--- NOTE | 2020-01-27 11:20 | PN ---
Progress Note (short form) - Note Progress Note: PULMONARY COUGH/WHEEZE VSS/AFEBRILE Constitutional: Yes: Well Nourished, Calm Eyes: Yes: WNL HENT: Yes: WNL Neck: Yes: WNL Cardiovascular: Yes: Regular Rate and Rhythm, S1, S2 Respiratory: Yes: Wheezes (SCATTERED SHANTANU WHEEZES) Gastrointestinal: Yes: Normal Bowel Sounds, Soft Extremities: Yes: WNL Edema: No LABS/MEDS/NOTES/IMAGES REVIEWED - Problems (1) Acute hypercapnic respiratory failure Code(s): J96.02 - ACUTE RESPIRATORY FAILURE WITH HYPERCAPNIA (2) Asthma Code(s): J45.909 - UNSPECIFIED ASTHMA, UNCOMPLICATED Qualifiers: Asthma severity: moderate Asthma persistence: unspecified Asthma complication type: with acute exacerbation Qualified Code(s): J45.901 - Unspecified asthma with (acute) exacerbation (3) Asthma exacerbation Code(s): J45.901 - UNSPECIFIED ASTHMA WITH (ACUTE) EXACERBATION (4) Elevated troponin Code(s): R79.89 - OTHER SPECIFIED ABNORMAL FINDINGS OF BLOOD CHEMISTRY NIPPV PRN IV Medrol Continue Bronchodilators VTE prophylaxis No smoking was counseled Outpatient PFTs once stable Trend lactate Sleep Screen Roe AVERY MD
[2020-01-27] MEDS: AZITHROMYCIN IVPB 250 MG in DEXTROSE 5%-WATER - 250 ML IVPB SCH (11:27)
[2020-01-28] MEDS: methylPREDNISolone NA SUCC 40 MG/1 ML VIAL IVPUSH SCH ×2 (03:30→09:47)
[2020-01-28] MEDS ORDERED: METHADONE HCL 40 MG DISPERSABLE TABLET ONE (06:08)
[2020-01-28] MEDS ORDERED: METHADONE HCL 10 MG TABLET ONE (06:08)
[2020-01-28] MEDS: METHADONE 40 MG, METHADONE 10 MG PO SCH (06:37)
[2020-01-28 08:02] LABS: BASO % 0.1 % (0-2.0); HEMATOCRIT 41.1 % (35.4-49); HEMOGLOBIN 13.7 GM/dL (11.7-16.9); LYMPH % 7.9 % (8-40); MCH 31.5 pg (25.7-33.7); MCHC 33.5 g/dl (32.0-35.9); MEAN CELL VOLUME 94.2 fl (80-96); MEAN PLT VOLUME 7.9 fl (7.5-11.1); MONO % 6.5 % (3.8-10.2); NEUT % 85.5 % (42.8-82.8); PLATELET COUNT 279 K/MM3 (134-434); RBC 4.36 M/mm3 (4.00-5.60); RDW 14.9 % (11.9-15.9)
[2020-01-28] MEDS: ALBUTEROL SO4 2.5/IPRATROPIUM 0.5 INH SOL 3 ML VIAL.NEB. NEB SCH ×4 (08:10→21:10)
[2020-01-28] MEDS ORDERED: cefTRIAXone SODIUM 1 GM VIAL ONE (09:35)
[2020-01-28] MEDS ORDERED: DEXTROSE 5%-WATER - 50 ML IVPB ONE (09:35)
[2020-01-28] MEDS ORDERED: PT OWN MED DRAWER 7, Y5N ONE (09:35)
[2020-01-28] MEDS: CEFTRIAXONE 1 GM in DEXTROSE 5%-WATER - 50 ML IVPB SCH (09:47)
--- NOTE | 2020-01-28 11:22 | PN ---
Progress Note, Physician - Current Medication List Current Medications: Active Medications Albuterol/Ipratropium (Duoneb -) 1 amp NEB RQID [facility] Last Admin: 01/28/20 08:10 Dose: 1 amp Documented by: Ceftriaxone Sodium 1 gm/ (Dextrose) 50 mls @ 200 mls/hr IVPB DAILY [facility]; Protocol Last Admin: 01/28/20 09:47 Dose: 200 mls/hr Documented by: Sodium Chloride (Normal Saline -) 1,000 mls @ 100 mls/hr IV ASDIR [facility] Last Admin: 01/27/20 09:34 Dose: 100 mls/hr Documented by: Azithromycin 250 mg/ Dextrose 250 mls @ 250 mls/hr IVPB DAILY [facility] Last Admin: 01/27/20 11:27 Dose: 250 mls/hr Documented by: Levalbuterol HCl (Xopenex) 0.63 mg IH Q8H PRN PRN Reason: ASTHMA Methadone HCl 40 mg/ Methadone (HCl 10 mg) 50 mg PO 0600 [facility] Last Admin: 01/28/20 06:37 Dose: 50 mg Documented by: Methylprednisolone Sodium Succinate (Solu-Medrol -) 60 mg IVPUSH Q8H-IV [facility] Last Admin: 01/28/20 09:47 Dose: 60 mg Documented by: - Objective Vital Signs: Vital Signs Temperature 98.3 F 01/28/20 08:16 Pulse Rate 84 01/28/20 08:16 Respiratory Rate 20 01/28/20 09:00 Blood Pressure 137/98 01/28/20 08:16 O2 Sat by Pulse Oximetry (%) 97 01/28/20 09:00 Cardiovascular: Yes: S1, S2 Respiratory: Yes: Wheezes Gastrointestinal: Yes: Normal Bowel Sounds, Soft Labs: CBC, BMP 01/28/20 05:56 01/27/20 06:56 INR, PTT INR 1.06 (0.83-1.09) 01/24/20 21:30 Problem List - Problems (1) Asthma exacerbation Assessment/Plan: IV STEROIDS NEBS ON IV ABX CT NOTED --NO ACUTE PATH PULM ON CASE Code(s): J45.901 - UNSPECIFIED ASTHMA WITH (ACUTE) EXACERBATION (2) Acute hypercapnic respiratory failure Assessment/Plan: ABOVE FLU SWAB Code(s): J96.02 - ACUTE RESPIRATORY FAILURE WITH HYPERCAPNIA (3) Lactic acidosis Assessment/Plan: IMPROVED Code(s): E87.2 - ACIDOSIS
--- NOTE | 2020-01-28 12:19 | PN ---
Progress Note (short form) - Note Progress Note: PULMONARY COUGH/WHEEZE MUCH IMPROVED VSS/AFEBRILE Constitutional: Yes: Well Nourished, Calm Eyes: Yes: WNL HENT: Yes: WNL Neck: Yes: WNL Cardiovascular: Yes: Regular Rate and Rhythm, S1, S2 Respiratory: Yes: Wheezes (SCATTERED SHANTANU WHEEZES) Gastrointestinal: Yes: Normal Bowel Sounds, Soft Extremities: Yes: WNL Edema: No LABS/MEDS/NOTES/IMAGES REVIEWED - Problems (1) Acute hypercapnic respiratory failure Code(s): J96.02 - ACUTE RESPIRATORY FAILURE WITH HYPERCAPNIA (2) Asthma Code(s): J45.909 - UNSPECIFIED ASTHMA, UNCOMPLICATED Qualifiers: Asthma severity: moderate Asthma persistence: unspecified Asthma complication type: with acute exacerbation Qualified Code(s): J45.901 - Unspecified asthma with (acute) exacerbation (3) Asthma exacerbation Code(s): J45.901 - UNSPECIFIED ASTHMA WITH (ACUTE) EXACERBATION (4) Elevated troponin Code(s): R79.89 - OTHER SPECIFIED ABNORMAL FINDINGS OF BLOOD CHEMISTRY NIPPV PRN IV Medrol Changed to oral prednisone` Bronchodilators VTE prophylaxis No smoking was counseled Outpatient PFTs once stable Discharge planning Sleep Screen Roe AVERY MD
[2020-01-28] MEDS: AZITHROMYCIN IVPB 250 MG in DEXTROSE 5%-WATER - 250 ML IVPB SCH (12:30)
[2020-01-28] MEDS: predniSONE 20 MG TABLET (UD) PO SCH (14:59)
[2020-01-29 01:24] VITALS: TEMP 97.7
[2020-01-29] MEDS ORDERED: METHADONE HCL 40 MG DISPERSABLE TABLET ONE (06:04)
[2020-01-29] MEDS ORDERED: METHADONE HCL 10 MG TABLET ONE (06:04)
[2020-01-29] MEDS: METHADONE 40 MG, METHADONE 10 MG PO SCH (06:17)
[2020-01-29] MEDS: SODIUM CHLORIDE 1,000 ML IV SCH (06:18)
[2020-01-29] MEDS: ALBUTEROL SO4 2.5/IPRATROPIUM 0.5 INH SOL 3 ML VIAL.NEB. NEB SCH (08:38)
--- NOTE | 2020-01-29 08:49 | DS ---
Physical Examination Vital Signs: Vital Signs Temperature 97.7 F 01/29/20 01:24 Pulse Rate 68 01/29/20 05:31 Respiratory Rate 20 01/29/20 05:31 Blood Pressure 130/78 01/29/20 05:31 O2 Sat by Pulse Oximetry (%) 94 L 01/28/20 20:47 Findings/Remarks: FEELING BETTER Constitutional: Yes: Mild Distress Eyes: Yes: WNL HENT: Yes: WNL Neck: Yes: WNL Cardiovascular: Yes: Regular Rate and Rhythm Respiratory: Yes: CTA Bilaterally Gastrointestinal: Yes: Soft Musculoskeletal: Yes: Muscle Weakness Edema: No Integumentary: Yes: WNL Wound/Incision: Yes: Clean/Dry Neurological: Yes: WNL ...Motor Strength: WNL Psychiatric: Yes: WNL Labs: CBC, BMP 01/28/20 05:56 01/27/20 06:56 Discharge Summary Problems reviewed: Yes Reason For Visit: ASTHMA Current Active Problems Acute hypercapnic respiratory failure (Acute) Acute respiratory failure with hypoxia (Acute) Asthma (Acute) Asthma exacerbation (Acute) Elevated troponin (Acute) Lactic acidosis (Acute) Procedures: Principal: CXR/LABS Hospital Course: ADMITTED SEVERE COPD EXACERBATION, TREATED IV STEROIDS, ABX, BIPAP FOR RESP SUPPORT, CAN FOLLOW OUT PATIENT WITH PULMONARY Goals: SEE YOUR DOCTOR IN 2-3 DAYS - Instructions Diet, Activity, Other Instructions: OUTPATIENT SLEEP STUDY/PFT WITH DR RAGLAND SEE DR BLAIR IN 2-3 DAYS Referrals: Sadiq Blair [Primary Care Provider] - Disposition: HOME - Home Medications Comprehensive Discharge Medication List: Ambulatory Orders Ibuprofen 600 mg PO Q6H PRN #14 tablet 04/24/16 Methadone [Dolophine -] 40 mg PO DAILY 04/24/16 Oxycodone HCl/Acetaminophen [Percocet 10-325 mg Tablet] 1 each PO QID 04/24/16 Tamsulosin HCl [Flomax -] 0.4 mg PO DAILY #7 capsule 04/24/16 Albuterol 2.5/Ipratropium 0.5 [Duoneb -] 1 amp NEB RQID #1 box 01/29/20 Methadone [Dolophine -] 50 mg PO 0600 tablet 01/29/20 predniSONE [Deltasone -] See Taper PO DAILY #40 tablet 01/29/20
[2020-01-29] MEDS ORDERED: PNEUMOC 13-VAL CONJ-DIP CRM/PF 0.5 ML DISP.SYRIN IM ONE (09:16)
[2020-01-29] MEDS ORDERED: cefTRIAXone SODIUM 1 GM VIAL ONE (09:33)
[2020-01-29] MEDS ORDERED: DEXTROSE 5%-WATER - 50 ML IVPB ONE (09:33)
[2020-01-29] MEDS: CEFTRIAXONE 1 GM in DEXTROSE 5%-WATER - 50 ML IVPB SCH (09:38)
[2020-01-29] MEDS: predniSONE 20 MG TABLET (UD) PO SCH (09:38)
[2020-01-29 09:52] VITALS: BP 122/78; PULSE 102
[2020-01-29] MEDS: AZITHROMYCIN IVPB 250 MG in DEXTROSE 5%-WATER - 250 ML IVPB SCH (10:30)
[2020-01-29] MEDS ORDERED: PNEUMOCOCCAL 23 VACCINE 0.5 ML VIAL IM ONE (11:00)
--- NOTE | 2020-01-29 12:45 | PN ---
Progress Note (short form) - Note Progress Note: PULMONARY States breathing close to baseline. Has been ambulating without dyspnea. Vital Signs Period Temp Pulse Resp BP Sys/Schuster Pulse Ox Last 24 Hr 97.7 F-98.1 F 68-102 20-20 119-153/74-94 94-99 Gen: NAD at rest Heart: RRR Lung: scattered wheeze Abd: soft, nontender Ext: no edema CBC, BMP 01/28/20 05:56 01/27/20 06:56 Active Medications Albuterol/Ipratropium (Duoneb -) 1 amp NEB RQID [facility] Last Admin: 01/29/20 08:38 Dose: 1 amp Documented by: Sodium Chloride (Normal Saline -) 1,000 mls @ 100 mls/hr IV ASDIR [facility] Last Admin: 01/29/20 06:18 Dose: 100 mls/hr Documented by: Levalbuterol HCl (Xopenex) 0.63 mg IH Q8H PRN PRN Reason: ASTHMA Methadone HCl 40 mg/ Methadone (HCl 10 mg) 50 mg PO 0600 [facility] Last Admin: 01/29/20 06:17 Dose: 50 mg Documented by: Prednisone (Deltasone -) 40 mg PO DAILY [facility] Last Admin: 01/29/20 09:38 Dose: 40 mg Documented by: A/P Acute Asthma Exacerbation Lactic Acidosis Methadone Maintenance - prednisone taper - inhaled bronchodilators - O2 to keep SpO2 >90% - DVT prophylaxis
== END 2020-01-29 13:04 | disposition home or self-care (01) | DRG 140 ==
LOC: JER 20:39 → JERBED 23:16 → MERGE 23:16 → J5S 01-25 03:43 → J4W 01-25 07:50
PROVIDERS: ADMIT Family Medicine; ATTEND Family Medicine
PROC: 5A0955Z Assistance with Respiratory Ventilation, Greater than 96 Consecutive Hours (ICD-10-PCS; principal; 2020-01-24)
DX: J44.1 Chronic obstructive pulmonary disease with (acute) exacerbation (principal); J45.41 Moderate persistent asthma with (acute) exacerbation; J96.01 Acute respiratory failure with hypoxia; R79.89 Other specified abnormal findings of blood chemistry; E87.2 Acidosis; J96.02 Acute respiratory failure with hypercapnia; E78.5 Hyperlipidemia, unspecified; E66.9 Obesity, unspecified; Z68.32 Body mass index [BMI] 32.0-32.9, adult; R00.0 Tachycardia, unspecified
CPT/HCPCS: 36415; 36600; 71045-TC-FY; 71275-TC; 80048; 80053; 81003; 82375; 82550; 82803; 83050; 83605; 83735; 84443; 84484; 85025; 85027; 85610; 87040; 87086; 87804; 90732; 93005; 93010; 94640; 94660; 99285-25; G0009; J7030

== ENCOUNTER 2020-08-21 09:32 | Observation (INO) | payer OTHER ==
[2020-08-21] MEDS ORDERED: ALBUTEROL SO4 2.5/IPRATROPIUM 0.5 INH SOL 3 ML VIAL.NEB. NEB ONE ×2 (09:41→10:25)
[2020-08-21] MEDS ORDERED: DEXAMETHASONE SOD PHOSPHATE 10 MG/1 ML VIAL ONE (09:42)
--- OUTSIDE RECORDS SUMMARY | 2020-08-21 10:02 | XMS ---
:1965 Author Organization [facility] Care Team Providers Name Role Phone Heidi Hernandez Unavailable Unavailable Aszalos, Margareth Unavailable Unavailable Aszalos, Margareth Unavailable Unavailable Aszalos, Margareth Unavailable Unavailable Aszalos, Margareth Unavailable Unavailable Aszalos, Margareth Unavailable Unavailable Aszalos, Margareth Unavailable Unavailable Aszalos, Margareth Unavailable Unavailable Aszalos, Margareth Unavailable Unavailable Rey MD Unavailable Unavailable Rey MD Unavailable Unavailable Re-disclosure Warning The records that you are about to access may contain information from federally- assisted alcohol or drug abuse programs. If such information is present, then the following federally mandated warning applies: This information has been disclosed to you from records protected by federal confidentiality rules (42 CFR part 2). The federal rules prohibit you from making any further disclosure of this information unless further disclosure is expressly permitted by the written consent of the person to whom it pertains or as otherwise permitted by 42 CFR part 2. A general authorization for the release of medical or other information is NOT sufficient for this purpose. The Federal rules restrict any use of the information to criminally investigate or prosecute any alcohol or drug abuse patient.The records that you are about to access may contain highly sensitive health information, the redisclosure of which is protected by Article 27-F of the [facility] Public Health law. If you continue you may haveaccess to information: Regarding HIV / AIDS; Provided by facilities licensed or operated by the [facility] Office of Mental Health; or Provided by the [facility] Office for People With Developmental Disabilities. If such information is present, then the following [facility] mandated warning applies: This information has been disclosed to you from confidential records which are protected by state law. State law prohibits you from making any further disclosure of this information without the specific written consent of the person to whom it pertains, or as otherwise permitted by law. Any unauthorized further disclosure in violation of state law may result in a fine or alf sentence or both. A general authorization for the release of medical or other information is NOT sufficient authorization for further disclosure. Allergies and Adverse Reactions Type Description Substance Reaction Status Data Source(s ) Propensity to Propensity to Propensity to NEXTG EN ([facility] adverse reactions adverse reactions adverse reactions [facility] (disorder) (disorder) (disorder) [place]) Family History Family Member Family Member Family Member Date of Description Data Source(s) Name Gender Status Status Unknown Female Diagnosis 01/20/2017 NEXTGEN ([facility] 12:00:[address] [facility]) Encounters Encounter Providers Location Date Indications Data Source(s ) Outpatient 03/27/2019 GSI ([facility] 07:30:42 AM Health Care EDT Collaborative) Attender: [place] 11/23/2018 NEXTGEN ( [facility] Rey BARNES 12:00:00 PM [facility]) 11/23/2018 12:00:00 PM EST Attender: [facility] 01/20/2017 NEXTGE N ([facility] 11:50:00 AM [facility]) 01/20/2017 11:50:00 AM EST Medications Medication Brand Start Product Dose Route Administrative Pharmacy [facility] Indications Reaction Description Data Name Date Form Instructions Instructions Source(s) atorvastati atorva 1.00 ORAL active take 1 NE XTGEN n 20 MG statin {tbl} tablet by (Art nt Oral Tablet 20 mg oral route J osephs atorvastati tablet every day M edical n 20 mg [place]) tablet Acetaminoph Percoc 1 ORAL active Acetamino phe NEXTGEN en 325 MG / et 10 {tbl} n 325 MG / ( Oxycodone mg-325 Oxycodone Nahid ephs Hydrochlori mg Hydrochlorid Medical de 10 MG tablet e 10 MG Oral C enter) Oral Tablet Tablet [Percocet] [Percocet] Percocet 10 mg-325 mg tablet Aspirin 81 aspiri 1.00 ORAL active chew 1 NEX TGEN MG Chewable n 81 {tbl} tablet by (S aint Tablet mg oral route [facility] aspirin 81 chewab every day Me dical mg chewable [place]) tablet tablet Insurance Providers Payer name Policy type Policy ID Covered Covered alliance party's Policy P darrell / Coverage alliance party ID relationship to Woo Inf ormation type woo [place] [id number] [place] [id number] HMO MEDICAID [id number] SP [id number] Dental [id number] S [id number] [facility] MKD Medicaid [id number] S [id number] Regular Clinic Visit MVP Medicaid [id number] S [id number] q Managed Care [facility] [id number] S [id number] [facility] Medicaid [facility] [id number] self [id number] OPTIONS Problems, Conditions, and Diagnoses Code Display Name Description Problem Type Effective Data Sour ce(s) Dates [id number] Hyperlipidemia Hyperlipidemia Problem 01/20/2017 NEXTGE N ([facility] 12[facility] [facility]) [id number] Chronic back pain Chronic back pain Problem 01/20/2017 NEXTGEN ([facility] [facility]) [id number] Asthma Asthma Problem 01/20/2017 NEXTGEN ([facility] [facility]) [id number] Opioid dependence Opioid dependence Problem 01/20/2017 NEXTGEN ([facility] 12[facility] [facility]) 799.9 OTHER UNKNOWN AND DENTAL DIAGNOSIS Diagnosis 01/24/2019 G REENWAY ([place] UNSPECIFIED CAUSE 06:43:43 PM [place] [facility] MORBIDITY OR EST [facility]) Social History Code Duration Value Status Description Data Source(s ) Smoking Unknown if ever completed Unknown if ever Amelia t [facility] smoked smoked [facility] Patient Treatment Plan of Care Planned Activity Planned Date Details Description Data Source (s) Acetaminophen 325 MG / NEXTG EN ([facility] Oxycodone Hydrochloride 10 M [facility]) MG Oral Tablet [Percocet] atorvastatin 20 MG Oral NEXT GEN ([facility]) Aspirin 81 MG Chewable NEXTG EN ([facility])
--- NOTE | 2020-08-21 10:25 | PDOC ---
Documentation entered by Mara Rodarte SCRIBE, acting as scribe for Kay King MD. Kay King MD: This documentation has been prepared by the jericaibeCayden Lincy, SCRIBE, under my direction and personally reviewed by me in its entirety. I confirm that the documentation accurately reflects all work, treatment, procedures, and medical decision making performed by me. History of Present Illness - General Chief Complaint: Asthma Stated Complaint: DIFFICULTY BREATHING Time Seen by Provider: 08/21/20 09:59 History Source: Patient Exam Limitations: No Limitations - History of Present Illness Initial Comments: 08/21/20 10:26 The patient is a 54-year-old male with a past medical history significant for asthma, COPD and Heroin abuse (on methadone) who presents to the emergency department via EMS for shortness of breath. The patient reports he woke up this morning feeling short of breath, associated with productive yellow sputum coug h. The patient reports using his rescue inhaler at home, without relief. En route to the ER, the patient was given 10mg Decadron and 1amp Duoneb with symptom improvement following the treatment. The patient reports he is a former smoker, quit >20 years ago. Denies home oxygen use. Denies fever or chills. Denies a history of DVT or PE. Denies recent travel. Denies recent COVID exposure. Denies pulmonology follows up. no cp. no leg swelling. no calf pain. Allergies: NKA PCP: Dr. Blair 08/21/20 10:59 Past History - Medical History Allergies/Adverse Reactions: Allergies Allergy/AdvReac Type Severity Reaction Status Date / Time No Known Allergies Allergy Verified 08/21/20 12:14 Home Medications: Ambulatory Orders Albuterol 2.5/Ipratropium 0.5 [Duoneb -] 1 amp NEB RQID #1 box 01/29/20 Methadone [Dolophine -] 50 mg PO 0600 tablet 01/29/20 Asthma: Yes COPD: No HTN: Yes Hypercholesterolemia: Yes - Psycho-Social/Smoking History Smoking History: Never smoked Have you smoked in the past 12 months: No - Substance Abuse Hx (Audit-C & DAST Scrn) How often the patient has a drink containing alcohol: Never Score: In Men: 4 or > Positive; In Women: 3 or > Positive: 0 Screen Result (Pos requires Nsg. Audit-10AR): Negative In the last yr the pt used illegal drug/Rx for NonMed reason: Yes Score: Yes response is considered Positive: 1 Screen Result (Positive result requires Nsg. DAST-10): Positive Review of Systems - Review of Systems Able to Perform ROS?: Yes Comments:: 08/21/20 10:26 GENERAL/CONSTITUTIONAL: No fever or chills. No weakness. HEAD, EYES, EARS, NOSE AND THROAT: No change in vision. No ear pain or discharge. No sore throat. CARDIOVASCULAR: +shortness of breath. No chest pain. RESPIRATORY: +productive cough. No wheezing, or hemoptysis. GASTROINTESTINAL: No nausea, vomiting, diarrhea or constipation. GENITOURINARY: No dysuria, frequency, or change in urination. MUSCULOSKELETAL: No joint or muscle swelling or pain. No neck or back pain. SKIN: No rash NEUROLOGIC: No headache, vertigo, loss of consciousness, or change in strength/sensation. ENDOCRINE: No increased thirst. No abnormal weight change. HEMATOLOGIC/LYMPHATIC: No anemia, easy bleeding, or history of blood clots. ALLERGIC/IMMUNOLOGIC: No hives or skin allergy. *Physical Exam - Vital Signs Last Vital Signs Temp Pulse Resp BP Pulse Ox 97.5 F L 90 26 H 141/74 99 08/21/20 09:46 08/21/20 09:46 08/21/20 09:46 08/21/20 09:46 08/21/20 09:46 - Physical Exam 08/21/20 10:21 awake alert NAD pulse ox 88 % RA< normal resp effort. lungs diffuse wheezing. no crackles. heart reg tachycardia. no mrg abd soft nt nd ext wwp. no edema. no calf tenderness. skin warm and dry. alert oriented x 3. Heart Score/ECG Review #1 General ECG Interpretation: Sinus Rhythm, Normal Rate (83), Normal Intervals, No acute ischemic changes ED Treatment Course - LABORATORY CBC & Chemistry Diagram: 08/21/20 10:10 08/21/20 10:10 Medical Decision Making - Medical Decision Making 08/21/20 10:23 54 yo male h/o tobacco use ( quit 20 yrs ago) copd, heroin opiate addiction on methadone, here wiht sob. pt states he awoke with wheezing today. no f/c cough productive yellow sputum. no known h/o covid or covid exposure. no h/o pe or dvt. no leg swelling. no edema. plan cbc cmp trop ekg cxr. steroids. ekg . pt already received steroids, nebs by EMS will given one more neb here. Discharge - Discharge Information Problems reviewed: Yes Clinical Impression/Diagnosis: COPD exacerbation - Admission Yes - Follow up/Referral Referrals: Sadiq Blair [Primary Care Provider] - - Patient Discharge Instructions - Post Discharge Activity
[2020-08-21 10:53] LABS: BASO % 0.5 % (0-2.0); EOS % 6.3 % (0-4.5); HEMOGLOBIN 16.3 GM/dL (11.7-16.9); LYMPH % 17.4 % (8-40); MCH 31.9 pg (25.7-33.7); MCHC 33.3 g/dl (32.0-35.9); MEAN CELL VOLUME 95.8 fl (80-96); MEAN PLT VOLUME 7.6 fl (7.5-11.1); MONO % 5.5 % (3.8-10.2); NEUT % 70.3 % (42.8-82.8); PLATELET COUNT 262 K/MM3 (134-434); RBC 5.12 M/mm3 (4.00-5.60); RDW 13.4 % (11.9-15.9); WHITE BLOOD COUNT 9.6 K/mm3 (4.0-10.0)
[2020-08-21 11:28] LABS: BILIRUBIN,TOTAL 0.3 mg/dL (0.2-1); BLOOD UREA NITROGEN 9.7 mg/dL (7-18); CREATININE 0.6 mg/dL (0.55-1.3); N-TERMINAL BNP 22.4 pg/ml (5-125); POTASSIUM 4.1 mmol/L (3.5-5.1); TOT PROT 7.8 g/dl (6.4-8.2)
[2020-08-21 12:47] LABS: ARTERIAL BLD GAS O2 SATURATION 94.7 mmHg (95-98); ARTERIAL BLOOD GAS BASE EXCESS -0.1 mmol/L (-2-2); ARTERIAL BLOOD GAS PO2 75.9 mmHg (80-100); ARTERIAL BLOOD GAS pH 7.364 (7.350-7.450)
[2020-08-21 12:51] LABS: ALLENS TEST POSITIVE
[2020-08-21] MEDS ORDERED: PNEUMOC 13-VAL CONJ-DIP CRM/PF 0.5 ML DISP.SYRIN IM ONE (15:34)
[2020-08-21 15:35] VITALS: BMI 30.2
[2020-08-21] MEDS: ALBUTEROL SO4 2.5/IPRATROPIUM 0.5 INH SOL 3 ML VIAL.NEB. NEB SCH (20:38)
[2020-08-21] MEDS: methylPREDNISolone NA SUCC 40 MG/1 ML VIAL IVPUSH SCH (21:49)
[2020-08-21] MEDS: HEPARIN NA (PORCINE) 5,000 UNITS/ML 1ML VIAL SQ SCH (21:49)
[2020-08-22] MEDS ORDERED: MELATONIN 5 MG TABLETS PO PRN (01:54)
[2020-08-22] MEDS ORDERED: ACETAMINOPHEN 325 MG TABLET (FP) PO PRN ×2 (01:54→11:02)
[2020-08-22] MEDS: methylPREDNISolone NA SUCC 40 MG/1 ML VIAL IVPUSH SCH ×4 (02:10→21:38)
[2020-08-22] MEDS ORDERED: METHADONE HCL 10 MG TABLET PO SCH (06:00)
[2020-08-22] MEDS ORDERED: METHADONE HCL 10 MG TABLET ONE (06:13)
[2020-08-22] MEDS ORDERED: METHADONE HCL 40 MG DISPERSABLE TABLET ONE (06:13)
[2020-08-22] MEDS: METHADONE 40 MG, METHADONE 10 MG PO SCH (06:32)
[2020-08-22 08:38] LABS: BASO % 0.3 % (0-2.0); HEMATOCRIT 50.7 % (35.4-49); HEMOGLOBIN 17.3 GM/dL (11.7-16.9); LYMPH % 5.5 % (8-40); MCH 32.7 pg (25.7-33.7); MCHC 34.1 g/dl (32.0-35.9); MEAN CELL VOLUME 95.8 fl (80-96); MONO % 1.6 % (3.8-10.2); NEUT % 92.6 % (42.8-82.8); PLATELET COUNT 308 K/MM3 (134-434); RBC 5.29 M/mm3 (4.00-5.60); RDW 13.4 % (11.9-15.9); WHITE BLOOD COUNT 16.8 K/mm3 (4.0-10.0)
[2020-08-22] MEDS: ALBUTEROL SO4 2.5/IPRATROPIUM 0.5 INH SOL 3 ML VIAL.NEB. NEB SCH ×3 (08:57→20:20)
[2020-08-22 09:17] LABS: BILIRUBIN,TOTAL 0.8 mg/dL (0.2-1); BLOOD UREA NITROGEN 10.5 mg/dL (7-18); CALCIUM 9.8 mg/dL (8.5-10.1); CREATININE 0.6 mg/dL (0.55-1.3); MAGNESIUM 2.1 mg/dL (1.8-2.4); POTASSIUM 4.4 mmol/L (3.5-5.1)
[2020-08-22] MEDS: HEPARIN NA (PORCINE) 5,000 UNITS/ML 1ML VIAL SQ SCH ×2 (09:53→21:38)
[2020-08-22] MEDS: PANTOPRAZOLE 20 MG TABLET PO SCH (09:53)
--- NOTE | 2020-08-22 09:54 | EKG ---
Test Reason : Blood Pressure : / mmHG Vent. Rate : 083 BPM Atrial Rate : 083 BPM P-R Int : 158 ms QRS Dur : 070 ms QT Int : 386 ms P-R-T Axes : 062 039 066 degrees QTc Int : 453 ms NORMAL SINUS RHYTHM NORMAL ECG NO PREVIOUS ECGS AVAILABLE Confirmed by KURT KIRAN MD ([id number]) on 08/22/2020 9:54:17 AM Referred By: Confirmed By:KURT KIRAN MD
[2020-08-22 10:08] LABS: ANISOCYTOSIS 1+; MACROCYTOSIS 0; PLATELET ESTIMATE NORMAL; TEAR DROP CELLS 1+
--- NOTE | 2020-08-22 11:03 | HP ---
Admitting History and Physical - Primary Care Physician PCP: Sadiq Blair (CassieIyamelodie) - Admission Chief Complaint: SOB History of Present Illness: The patient is a 54-year-old male with a past medical history significant for asthma, COPD and Heroin abuse (on methadone) who presents to the emergency department via EMS for shortness of breath. The patient reports he woke up this morning feeling short of breath, associated with productive yellow sputum cough. The patient reports using his rescue inhaler at home, without relief. En route to the ER, the patient was given 10mg Decadron and 1amp Duoneb with symptom improvement following the treatment. The patient reports he is a former smoker, quit >20 years ago. Denies home oxygen use. Denies fever or chills. Denies a history of DVT or PE. Denies recent travel. Denies recent COVID exposure. During my eval, pt c/o SOB at rest, noted for audible wheezing, SpO2 dropped to 90% on Room air, Spo2>95% on Nasal O2 2lpm. History Source: Patient Limitations to Obtaining History: No Limitations - Past Medical History Cardiovascular: Yes: Hyperlipdemia Pulmonary: Yes: Asthma, Bronchitis, Pneumonia. No: Cancer, COPD, O2 Dependent, Previously Intubated, Pulmonary Embolus, Pulmonary Fibrosis - Smoking History Smoking history: Former smoker Have you smoked in the past 12 months: No If you are a former smoker, when did you quit?: 1999 - Alcohol/Substance Use Hx Alcohol Use: Yes (Social) Home Medications - Allergies Allergies/Adverse Reactions: Allergies Allergy/AdvReac Type Severity Reaction Status Date / Time No Known Allergies Allergy Verified 08/21/20 12:14 - Home Medications Home Medications: Ambulatory Orders Albuterol 2.5/Ipratropium 0.5 [Duoneb -] 1 amp NEB RQID #1 box 01/29/20 Methadone [Dolophine -] 50 mg PO 0600 tablet 01/29/20 Review of Systems - Review of Systems Constitutional: reports: No Symptoms Eyes: reports: No Symptoms HENT: reports: No Symptoms Neck: reports: No Symptoms Cardiovascular: reports: No Symptoms Respiratory: reports: SOB Gastrointestinal: reports: No Symptoms Genitourinary: reports: No Symptoms Breasts: reports: No Symptoms Reported Musculoskeletal: reports: No Symptoms Integumentary: reports: No Symptoms Neurological: reports: No Symptoms Endocrine: reports: No Symptoms Hematology/Lymphatic: reports: No Symptoms Psychiatric: reports: No Symptoms Physical Examination Vital Signs: Vital Signs Temperature 98.1 F 08/22/20 08:59 Pulse Rate 88 08/22/20 08:59 Respiratory Rate 20 08/22/20 08:59 Blood Pressure 125/82 08/22/20 08:59 O2 Sat by Pulse Oximetry (%) 95 08/22/20 08:59 Constitutional: Yes: Well Nourished, No Distress, Calm Cardiovascular: Yes: Regular Rate and Rhythm Respiratory: Yes: On Nasal O2, SOB, Wheezes (Diffuse) Gastrointestinal: Yes: Normal Bowel Sounds, Soft Renal/: Yes: WNL Musculoskeletal: Yes: WNL Extremities: Yes: WNL Edema: No Peripheral Pulses WNL: Yes Neurological: Yes: Alert, Oriented Psychiatric: Yes: Oriented Labs: CBC, BMP 08/22/20 08:00 08/22/20 08:00 Imaging - Results Chest X-ray: Report Reviewed Problem List - Problems (1) Asthma exacerbation Assessment/Plan: -Pulmonary consult -Started on IV medrol -Nasal o2 to keep SpO2>90% -CXR unremarkable -CT Chest ordered -Bronchodilators via neb once COVID 19 is negative -Add loratadine 10 mg po daily -Add montelukast 10 mg po HS Problems reviewed: Yes Code(s): J45.901 - UNSPECIFIED ASTHMA WITH (ACUTE) EXACERBATION (2) Shortness of breath Problems reviewed: Yes Code(s): R06.02 - SHORTNESS OF BREATH Assessment/Plan See problem list
--- NOTE | 2020-08-22 13:10 | CON.PULM ---
Consult Consult Specialty:: PULM/CCM Referred by:: JOHAN Reason for Consultation:: SOB - History of Present Illness Chief Complaint: SOB History of Present Illness: 54 M, asthma, COPD and Heroin abuse (on methadone). Admitted via the ER due to shortness of breath for the past 3 to 4 days. Denies travel history or sick contacts. No known COVID19 exposure. Reports some minimal yellow productive cough. No hemoptysis or night sweats. Reports feeling better after he was given 10mg Decadron and 1amp Duoneb. CXR: No acute process. - History Source History Provided By: Patient Limitations to Obtaining History: No Limitations - Past Medical History Cardio/Vascular: Yes: Hyperlipdemia Pulmonary: Yes: Asthma, Bronchitis, Pneumonia. No: Cancer, COPD, O2 Dependent, Previously Intubated, Pulmonary Embolus, Pulmonary Fibrosis - Alcohol/Substance Use Hx Alcohol Use: Yes (Social) - Smoking History Smoking history: Former smoker Have you smoked in the past 12 months: No If you are a former smoker, when did you quit?: 1999 Home Medications - Allergies Allergies/Adverse Reactions: Allergies Allergy/AdvReac Type Severity Reaction Status Date / Time No Known Allergies Allergy Verified 08/21/20 12:14 - Home Medications Home Medications: Ambulatory Orders Albuterol 2.5/Ipratropium 0.5 [Duoneb -] 1 amp NEB RQID #1 box 01/29/20 Methadone [Dolophine -] 50 mg PO 0600 tablet 01/29/20 Review of Systems - Review of Systems Constitutional: reports: Malaise. denies: Chills, Fever, Night Sweats, Unintentional Wgt. Loss Eyes: reports: No Symptoms HENT: reports: No Symptoms Neck: reports: No Symptoms Cardiovascular: reports: Palpitations, Shortness of Breath. denies: Chest Pain, Edema Respiratory: reports: Cough, SOB, SOB on Exertion, Wheezing. denies: Hemoptysis, Orthopnea, PND, Snoring Gastrointestinal: reports: No Symptoms Genitourinary: reports: No Symptoms Breasts: reports: No Symptoms Reported Musculoskeletal: reports: No Symptoms Integumentary: reports: No Symptoms Neurological: reports: No Symptoms Endocrine: reports: No Symptoms Hematology/Lymphatic: reports: No Symptoms Psychiatric: reports: No Symptoms Physical Exam Vital Sings: Vital Signs Temperature 98.1 F 08/22/20 08:59 Pulse Rate 88 08/22/20 08:59 Respiratory Rate 20 08/22/20 08:59 Blood Pressure 125/82 08/22/20 08:59 O2 Sat by Pulse Oximetry (%) 95 08/22/20 09:00 Constitutional: Yes: No Distress Eyes: Yes: Conjunctiva Clear, EOM Intact HENT: Yes: Atraumatic, Normocephalic Neck: Yes: Supple, Trachea Midline Cardiovascular: Yes: Regular Rate and Rhythm Respiratory: Yes: Cough, Diminished, Rhonchi, SOB, SOB on Exertion, Tachypnea, Wheezes. No: Accessory Muscle Use, Rales, Stridor ...Inspection: Yes: WNL ...Clubbing: No Gastrointestinal: Yes: Normal Bowel Sounds, Soft Renal/: Yes: WNL Musculoskeletal: Yes: WNL Extremities: Yes: WNL Edema: No Peripheral Pulses WNL: Yes Integumentary: Yes: WNL Neurological: Yes: WNL, Alert, Oriented ...Motor Strength: WNL Psychiatric: Yes: WNL, Alert, Oriented Labs: CBC, BMP 08/22/20 08:00 08/22/20 08:00 ABG Results ABG pH 7.364 (7.350-7.450) 08/21/20 12:35 ABG HCO3 25.9 mmol/L (22-27) 08/21/20 12:35 ABG O2 Sat (Measured) 94.7 mmHg (95-98) L 08/21/20 12:35 ABG O2 Content No Result Required. 08/21/20 12:35 ABG Base Excess -0.1 mmol/L (-2-2) 08/21/20 12:35 Imaging - Results Chest X-ray: Report Reviewed, Image Reviewed Problem List - Problems (1) Acute bronchitis Code(s): J20.9 - ACUTE BRONCHITIS, UNSPECIFIED (2) COPD exacerbation Code(s): J44.1 - CHRONIC OBSTRUCTIVE PULMONARY DISEASE W (ACUTE) EXACERBATION (3) Shortness of breath Code(s): R06.02 - SHORTNESS OF BREATH (4) Asthma Code(s): J45.909 - UNSPECIFIED ASTHMA, UNCOMPLICATED Qualifiers: Asthma severity: moderate Asthma persistence: unspecified Asthma complication type: with acute exacerbation Qualified Code(s): J45.901 - Unspecified asthma with (acute) exacerbation (5) Asthma exacerbation Code(s): J45.901 - UNSPECIFIED ASTHMA WITH (ACUTE) EXACERBATION Assessment/Plan Medrol Albuterol Can use Nebs after COVID19 Negative Supplemental O2 as needed VTE prophylaxis Monitor off ABX for now No smoking was counseled PFTs as an outpatient Will follow Thank you. Dr Vinson
[2020-08-22] MEDS ORDERED: ALBUTEROL SO4 HFA INHALER IH SCH (14:00)
[2020-08-22] MEDS ORDERED: ALBUTEROL SO4 HFA INHALER IH PRN (14:36)
[2020-08-22 15:28] LABS: COCAINE, UR NEGATIVE ng/ml (CUTOFF=300); PHENCYCLIDINE,URINE NEGATIVE ng/ml (CUTOFF=25); URINE BARBITURATES NEGATIVE ng/ml (CUTOFF=200); URINE BENZODIAZEPINES NEGATIVE ng/ml (CUTOFF=200)
[2020-08-22 15:33] LABS: URINE AMPHETAMINES NEGATIVE ng/ml (CUTOFF=500)
[2020-08-22 15:38] LABS: METHADONE, UR POSITIVE ng/ml (CUTOFF=300); OPIATES, URI POSITIVE ng/ml (CUTOFF=300)
[2020-08-22] MEDS: LORATADINE 10 MG TABLET PO SCH (15:52)
[2020-08-22] MEDS ORDERED: MONTELUKAST NA 10 MG TABLET PO SCH (22:00)
[2020-08-23] MEDS: methylPREDNISolone NA SUCC 40 MG/1 ML VIAL IVPUSH SCH ×2 (02:31→09:51)
[2020-08-23] MEDS ORDERED: METHADONE HCL 40 MG DISPERSABLE TABLET ONE (06:06)
[2020-08-23] MEDS ORDERED: METHADONE HCL 10 MG TABLET ONE (06:07)
[2020-08-23] MEDS: METHADONE 40 MG, METHADONE 10 MG PO SCH (06:41)
[2020-08-23] MEDS: PNEUMOCOCCAL 23 VACCINE 0.5 ML VIAL IM ONE ×2 (06:41→07:03)
--- NOTE | 2020-08-23 07:53 | PN ---
Progress Note, Physician History of Present Illness: pulmonary alert,comfortable,-sob,-cp - Current Medication List Current Medications: Active Medications Acetaminophen (Tylenol -) 650 mg PO Q6H PRN PRN Reason: PAIN Albuterol Sulfate (Ventolin Hfa Inhaler -) 2 puff IH Q6H PRN PRN Reason: SHORT OF BREATH/WHEEZING Albuterol/Ipratropium (Duoneb -) 1 amp NEB RQID [facility] Last Admin: 08/22/20 20:20 Dose: 1 amp Documented by: Heparin Sodium (Porcine) (Heparin -) 5,000 unit SQ BID [facility] Last Admin: 08/22/20 21:38 Dose: 5,000 unit Documented by: Loratadine (Claritin -) 10 mg PO DAILY [facility] Last Admin: 08/22/20 15:52 Dose: 10 mg Documented by: Melatonin (Melatonin) 5 mg PO HS PRN PRN Reason: INSOMNIA Last Admin: 08/22/20 02:10 Dose: 5 mg Documented by: Methadone HCl 40 mg/ Methadone (HCl 10 mg) 50 mg PO 0600 [facility] Last Admin: 08/23/20 06:41 Dose: 50 mg Documented by: Methylprednisolone Sodium Succinate (Solu-Medrol -) 40 mg IVPUSH Q6H-IV [facility] Last Admin: 08/23/20 02:31 Dose: 40 mg Documented by: Montelukast Sodium (Singulair -) 10 mg PO HS [facility] Last Admin: 08/22/20 21:38 Dose: 10 mg Documented by: Pantoprazole Sodium (Protonix -) 20 mg PO DAILY [facility] Last Admin: 08/22/20 09:53 Dose: 20 mg Documented by: - Objective Vital Signs: Vital Signs Temperature 98.0 F 08/23/20 06:00 Pulse Rate 73 08/23/20 06:00 Respiratory Rate 18 08/23/20 06:00 Blood Pressure 111/64 08/23/20 06:00 O2 Sat by Pulse Oximetry (%) 94 L 08/23/20 06:00 Constitutional: Yes: Well Nourished, Calm Eyes: Yes: WNL HENT: Yes: WNL Neck: Yes: WNL Cardiovascular: Yes: Regular Rate and Rhythm, S1, S2 Respiratory: Yes: Wheezes (few wheezes) Gastrointestinal: Yes: Normal Bowel Sounds, Soft Extremities: Yes: WNL Edema: No Labs: CBC, BMP 08/22/20 08:00 Assessment/Plan Problem List - Problems (1) Acute bronchitis Code(s): J20.9 - ACUTE BRONCHITIS, UNSPECIFIED (2) COPD exacerbation Code(s): J44.1 - CHRONIC OBSTRUCTIVE PULMONARY DISEASE W (ACUTE) EXACERBATION (3) Shortness of breath Code(s): R06.02 - SHORTNESS OF BREATH (4) Asthma Code(s): J45.909 - UNSPECIFIED ASTHMA, UNCOMPLICATED Qualifiers: Asthma severity: moderate Asthma persistence: unspecified Asthma complication type: with acute exacerbation Qualified Code(s): J45.901 - Unspecified asthma with (acute) exacerbation (5) Asthma exacerbation Code(s): J45.901 - UNSPECIFIED ASTHMA WITH (ACUTE) EXACERBATION Assessment/Plan SYMBICORT 160/4.5 2 PUFFS BID Prednisone Supplemental O2 as needed VTE prophylaxis No smoking was counseled PFTs as an outpatient DR RAGLAND
[2020-08-23] MEDS: ALBUTEROL SO4 2.5/IPRATROPIUM 0.5 INH SOL 3 ML VIAL.NEB. NEB SCH ×2 (09:43→12:24)
[2020-08-23] MEDS: LORATADINE 10 MG TABLET PO SCH (09:51)
[2020-08-23] MEDS: PANTOPRAZOLE 20 MG TABLET PO SCH (09:51)
[2020-08-23] MEDS: HEPARIN NA (PORCINE) 5,000 UNITS/ML 1ML VIAL SQ SCH (09:51)
--- NOTE | 2020-08-23 11:46 | PN ---
Progress Note, Physician Chief Complaint: SOB Asthma exacerbation - Current Medication List Current Medications: Active Medications Acetaminophen (Tylenol -) 650 mg PO Q6H PRN PRN Reason: PAIN Albuterol Sulfate (Ventolin Hfa Inhaler -) 2 puff IH Q6H PRN PRN Reason: SHORT OF BREATH/WHEEZING Albuterol/Ipratropium (Duoneb -) 1 amp NEB RQID ON LICENSE OF [facility] Last Admin: 08/23/20 09:43 Dose: Not Given Documented by: Heparin Sodium (Porcine) (Heparin -) 5,000 unit SQ BID ON [facility] OF [facility] Last Admin: 08/23/20 09:51 Dose: 5,000 unit Documented by: Loratadine (Claritin -) 10 mg PO DAILY [facility] OF [facility] Last Admin: 08/23/20 09:51 Dose: 10 mg Documented by: Melatonin (Melatonin) 5 mg PO HS PRN PRN Reason: INSOMNIA Last Admin: 08/22/20 02:10 Dose: 5 mg Documented by: Methadone HCl 40 mg/ Methadone (HCl 10 mg) 50 mg PO 0600 ON LICENSE OF [facility] Last Admin: 08/23/20 06:41 Dose: 50 mg Documented by: Methylprednisolone Sodium Succinate (Solu-Medrol -) 40 mg IVPUSH Q6H-IV ON LICENSE OF [facility] Last Admin: 08/23/20 09:51 Dose: 40 mg Documented by: Montelukast Sodium (Singulair -) 10 mg PO HS ON LICENSE OF [facility] Last Admin: 08/22/20 21:38 Dose: 10 mg Documented by: Pantoprazole Sodium (Protonix -) 20 mg PO DAILY ON LICENSE OF [facility] Last Admin: 08/23/20 09:51 Dose: 20 mg Documented by: - Objective Vital Signs: Vital Signs Temperature 98.0 F 08/23/20 06:00 Pulse Rate 73 08/23/20 06:00 Respiratory Rate 18 08/23/20 06:00 Blood Pressure 111/64 08/23/20 06:00 O2 Sat by Pulse Oximetry (%) 94 L 08/23/20 06:00 Labs: CBC, BMP 08/22/20 08:00 08/22/20 08:00 Problem List - Problems (1) Asthma exacerbation Assessment/Plan: -Pulmonary consult -Started on IV medrol -Nasal o2 to keep SpO2>90% -CXR unremarkable -CT Chest ordered -Bronchodilators via neb once COVID 19 is negative -Add loratadine 10 mg po daily -Add montelukast 10 mg po HS Problems reviewed: Yes Code(s): J45.901 - UNSPECIFIED ASTHMA WITH (ACUTE) EXACERBATION (2) Shortness of breath Problems reviewed: Yes Code(s): R06.02 - SHORTNESS OF BREATH
[2020-08-23 14:17] VITALS: BP 117/69; PULSE 84; TEMP 98.2
== END 2020-08-23 15:23 | disposition home or self-care (01) ==
LOC: JER 09:32 → INTOOBSV 12:47 → JERBED 12:47 → J5S 15:38
PROVIDERS: ADMIT Family Medicine; ATTEND Family Medicine
PROC: 3E0F7GC Introduction of Other Therapeutic Substance into Respiratory Tract, Via Natural or Artificial Opening (ICD-10-PCS; principal; 2020-08-21)
PROC: 3E023GC Introduction of Other Therapeutic Substance into Muscle, Percutaneous Approach (ICD-10-PCS; 2020-08-21)
PROC: 3E033GC Introduction of Other Therapeutic Substance into Peripheral Vein, Percutaneous Approach (ICD-10-PCS; 2020-08-21)
DX: J20.9 Acute bronchitis, unspecified (principal); J44.1 Chronic obstructive pulmonary disease with (acute) exacerbation; R06.02 Shortness of breath; Z87.891 Personal history of nicotine dependence; E66.9 Obesity, unspecified; Z68.30 Body mass index [BMI] 30.0-30.9, adult; F11.10 Opioid abuse, uncomplicated; G47.00 Insomnia, unspecified; Z79.891 Long term (current) use of opiate analgesic; Z29.9 Encounter for prophylactic measures, unspecified
CPT/HCPCS: 36415; 36600; 71046-TC-FY; 71250-TC; 80053; 80307; 82803; 83735; 83880; 84443; 84484; 85025; 90732; 93005; 93010; 94640; 96372; 96374; 99285-25; G0009; G0378; J1644; U0003

== ENCOUNTER 2021-10-31 08:23 | Emergency (ER) | payer OTHER ==
[2021-10-31 08:39] VITALS: BP 129/85; PULSE 106; TEMP 98.5; BMI 30.7
[2021-10-31] MEDS: ALBUTEROL SO4 2.5/IPRATROPIUM 0.5 INH SOL 3 ML VIAL.NEB. NEB SCH ×3 (08:45→09:17)
[2021-10-31] MEDS ORDERED: predniSONE 20 MG TABLET (UD) PO ONE (08:54)
[2021-10-31] MEDS ORDERED: ALBUTEROL SO4 2.5/IPRATROPIUM 0.5 INH SOL 3 ML VIAL.NEB. NEB ONE (09:12)
[2021-10-31] MEDS ORDERED: predniSONE 20 MG TABLET (UD) ONE (09:12)
== END 2021-10-31 10:35 | disposition home or self-care (01) ==
LOC: JER 08:23
PROC: 3E0F7GC Introduction of Other Therapeutic Substance into Respiratory Tract, Via Natural or Artificial Opening (ICD-10-PCS; principal; 2021-10-31)
DX: J44.1 Chronic obstructive pulmonary disease with (acute) exacerbation (principal)
CPT/HCPCS: 99283-25

== ENCOUNTER 2023-10-18 17:11 | Emergency (ER) | payer OTHER ==
[2023-10-18 17:33] VITALS: BP 148/99; PULSE 98; RESP 18; TEMP 98.5; BMI 32.3
[2023-10-18] MEDS ORDERED: SODIUM CHLORIDE 0.9% 500 ML INFUS.BAG IV ONE (18:18)
[2023-10-18] MEDS ORDERED: ACETAMINOPHEN 1000 MG/100 ML BAG IVPB ONE (18:18)
[2023-10-18] MEDS ORDERED: ACETAMINOPHEN INJECTION 100 ML IVPB ONE (18:31)
[2023-10-18 19:07] LABS: BASO % 0.3 % (0-2.0); EOS % 1.9 % (0-4.5); HEMATOCRIT 41.6 % (35.4-49); LYMPH % 13.2 % (8-40); MCH 31.1 pg (25.7-33.7); MCHC 33.7 g/dl (32.0-35.9); MEAN CELL VOLUME 92.1 fl (80-96); MEAN PLT VOLUME 7.6 fl (7.5-11.1); MONO % 5.7 % (3.8-10.2); NEUT % 78.9 % (42.8-82.8); PLATELET COUNT 295 10^3/uL (134-434); RBC 4.51 M/mm3 (4.00-5.60); RDW 14.2 % (11.9-15.9); WHITE BLOOD COUNT 11.5 K/mm3 (4.0-10.0)
[2023-10-18 19:11] LABS: EPI CELLS 9 /uL (0-25.1); HYALINE CASTS 2 /uL (0-3.1); URINE APPEARANCE CLOUDY; URINE BACTERIA 36 /uL (0-1359); URINE BILIRUBIN NEGATIVE (NEGATIVE); URINE COLOR DK YELLOW; URINE GLUCOSE (UA) NEGATIVE (NEGATIVE); URINE KETONE TRACE (NEGATIVE); URINE LEUK ESTERASE TRACE (NEGATIVE); URINE NITRITE NEGATIVE (NEGATIVE); URINE PROTEIN 1+ (NEGATIVE); URINE RBC 283 /uL (0-23.9); URINE UROBILINOGEN 0.2 mg/dL (0.2-1.0); URINE WBC 34 /uL (0-25.8)
[2023-10-18 19:23] LABS: POTASSIUM 4.1 mmol/L (3.5-5.1)
[2023-10-18 19:25] LABS: CALCIUM 9.6 mg/dL (8.5-10.1)
[2023-10-18 19:26] LABS: BLOOD UREA NITROGEN 9.7 mg/dL (7-18)
[2023-10-18 19:29] LABS: CREATININE 0.8 mg/dL (0.55-1.3)
[2023-10-18 19:31] LABS: BILIRUBIN,TOTAL 0.4 mg/dL (0.2-1); TOT PROT 7.8 g/dl (6.4-8.2)
[2023-10-18] MEDS ORDERED: CEFTRIAXONE 1 GM in DEXTROSE 5%-WATER - 100 ML IVPB ONE (20:22)
[2023-10-18] MEDS ORDERED: KETOROLAC TROMETHAMINE 30 MG/1 ML VIAL IVPUSH ONE (20:23)
[2023-10-18] MEDS ORDERED: TAMSULOSIN HCL 0.4 MG CAP PO ONE (20:23)
[2023-10-18] MEDS ORDERED: CEFTRIAXONE 1 GM/50 ML BAG ONE (20:30)
[2023-10-18] MEDS ORDERED: KETOROLAC TROMETHAMINE 30 MG/1 ML VIAL ONE (20:30)
[2023-10-18] MEDS ORDERED: TAMSULOSIN HCL 0.4 MG CAP ONE (20:30)
== END 2023-10-18 22:50 | disposition home or self-care (01) ==
LOC: JER 17:11
PROC: 3E03329 Introduction of Other Anti-infective into Peripheral Vein, Percutaneous Approach (ICD-10-PCS; principal; 2023-10-18)
PROC: 3E033NZ Introduction of Analgesics, Hypnotics, Sedatives into Peripheral Vein, Percutaneous Approach (ICD-10-PCS; 2023-10-18)
PROC: 3E0333Z Introduction of Anti-inflammatory into Peripheral Vein, Percutaneous Approach (ICD-10-PCS; 2023-10-18)
DX: R10.9 Unspecified abdominal pain (principal); N13.2 Hydronephrosis with renal and ureteral calculous obstruction
CPT/HCPCS: 36415; 74176-TC; 80053; 81003; 85025; 87086; 99284-25

== ENCOUNTER 2024-01-24 04:21 | Day surgery (SDC) | payer OTHER ==
[2023-12-08 11:35] VITALS: BMI 32.3
[2024-01-24] MEDS ORDERED: MIDAZOLAM HCL 2 MG/2 ML SINGLE DOSE VIAL ONE (13:14)
[2024-01-24 15:36] VITALS: BP 146/86; PULSE 83; RESP 20; TEMP 97.8
== END 2024-01-24 15:47 | disposition home or self-care (01) ==
LOC: JASU-SURG 04:21
PROVIDERS: ATTEND Urology
PROC: 0TF4XZZ Fragmentation in Left Kidney Pelvis, External Approach (ICD-10-PCS; principal; 2024-01-24 12:30)
DX: N20.0 Calculus of kidney (principal)

== ENCOUNTER 2025-08-09 09:26 | Emergency (ER) | payer OTHER ==
[2025-08-09 09:32] VITALS: BP 150/82; PULSE 96; RESP 18; TEMP 98.3; BMI 30.7
== END 2025-08-09 11:50 | disposition home or self-care (01) ==
LOC: JER 09:26
DX: F11.23 Opioid dependence with withdrawal (principal); F41.9 Anxiety disorder, unspecified; R25.1 Tremor, unspecified; R45.1 Restlessness and agitation
CPT/HCPCS: 99283-25

== ENCOUNTER 2025-08-09 12:40 | Inpatient (IN) | payer OTHER ==
[2025-08-09 13:39] VITALS: BMI 30.7
[2025-08-09] MEDS ORDERED: ONDANSETRON *ODT* 4 MG TABLET SL PRN (14:06)
[2025-08-09] MEDS ORDERED: POLYETHYLENE GLYCOL (HEALTHYLAX) 3350 17 GM PACKET PO PRN (14:06)
[2025-08-09] MEDS ORDERED: guaiFENesin 600 MG TABLET.ER (FP) PO PRN (14:06)
[2025-08-09] MEDS ORDERED: BENZONATATE 200 MG CAPSULE PO PRN (14:06)
[2025-08-09] MEDS ORDERED: DICYCLOMINE HCL 10 MG CAPSULE PO PRN (14:06)
[2025-08-09] MEDS ORDERED: NALOXONE (NARCAN) HCL 4 MG/0.1 ML SPRAY NS PRN (14:06)
[2025-08-09] MEDS ORDERED: BISMUTH SUBSALICYLATE 524 MG/30 ML PO PRN (14:06)
[2025-08-09] MEDS ORDERED: BENZOCAINE/MENTHOL (CHLORASEPTIC ) LOZENGE MM PRN (14:06)
[2025-08-09] MEDS ORDERED: LOPERAMIDE HCL 2 MG CAPSULE PO PRN (14:06)
[2025-08-09] MEDS ORDERED: MAG HYDROX/AL HYDROX/SIMETH 30 ML UNIT-DOSE CUP PO PRN (14:06)
[2025-08-09] MEDS ORDERED: IBUPROFEN 400 MG TABLET (FP) PO PRN (14:06)
[2025-08-09] MEDS ORDERED: ACETAMINOPHEN 325 MG TABLET (FP) PO PRN (14:06)
[2025-08-09] MEDS ORDERED: PRENATAL VITAMINS W/ FOLIC ACID TABLET (FP) PO ONE (16:15)
[2025-08-09] MEDS: PRENATAL VITAMINS W/ FOLIC ACID TABLET (FP) PO SCH (16:24)
[2025-08-09] MEDS: NICOTINE 14 MG/24 HOURS TOPICAL PATCH TD SCH (16:24)
[2025-08-09] MEDS: MELATONIN 5 MG TABLETS PO SCH (22:12)
[2025-08-09] MEDS: BUPRENORPHINE/NALOXONE 0.5 MG/0.125 MG FILM SL ONE (22:12)
[2025-08-09] MEDS: THIAMINE 100 MG TABLET PO SCH (22:12)
[2025-08-10] MEDS: BUPRENORPHINE/NALOXONE 0.5 MG/0.125 MG FILM SL SCH (09:52)
[2025-08-10 11:15] LABS: MCHC 32.8 g/dl (32.3-36.5); MEAN CELL VOLUME 93.0 fl (79.0-92.2); MEAN PLT VOLUME 9.7 fl (9.4-12.4); RDW 13.7 % (12.2-16.4)
[2025-08-10 11:39] LABS: GLUCOSE,RANDOM 151.0 mg/dL (74-106); TOT PROT 8.7 g/dl (6.4-8.2)
[2025-08-10 11:40] LABS: CO2 28.0 mmol/L (21-32)
[2025-08-10 11:42] LABS: ALK PHOS 72.0 U/L (40-150)
[2025-08-10 11:44] LABS: SGOT/AST 51.0 U/L (5-34); SGPT/ALT 34.0 U/L (0-55)
[2025-08-10 11:45] LABS: CREATININE 0.59 mg/dL (0.55-1.3)
[2025-08-10] MEDS: METHOCARBAMOL 500 MG TABLET PO PRN (17:35)
[2025-08-11] MEDS: IBUPROFEN 600 MG TABLET (FP) PO PRN (00:51)
[2025-08-11] MEDS: BUPRENORPHINE/NALOXONE 2 MG/0.5 MG FILM PACKET SL SCH (10:00)
[2025-08-11] MEDS: MIRTAZAPINE 15 MG TABLET (FP) PO SCH (22:21)
[2025-08-12] MEDS: hydrOXYzine PAMOATE 25 MG CAPSULE (FP) PO PRN (09:34)
[2025-08-12] MEDS: BUPRENORPHINE/NALOXONE 4 MG/1 MG FILM PACKET SL SCH (09:35)
[2025-08-12] MEDS: MAGNESIUM HYDROX 2400MG/30ML ORAL SUSPENSION 30 ML CUP PO PRN (22:29)
[2025-08-13] MEDS: BUPRENORPHINE/NALOXONE 8 MG/2 MG FILM PACKET SL SCH (09:58)
[2025-08-14] MEDS: BUPRENORPHINE/NALOXONE 8 MG/2 MG FILM PACKET SL SCH (09:17)
[2025-08-14 09:36] VITALS: BP 155/96; PULSE 109; RESP 18; TEMP 96.4
== END 2025-08-14 09:30 | disposition home or self-care (01) | DRG 773 ==
LOC: YASAS 12:40 → Y3N 16:23
PROVIDERS: ADMIT Allergy & Immunology; ATTEND Counselor Addiction (Substance Use Disorder)
PROC: HZ2ZZZZ Detoxification Services for Substance Abuse Treatment (ICD-10-PCS; principal; 2025-08-09)
DX: F11.23 Opioid dependence with withdrawal (principal); F14.20 Cocaine dependence, uncomplicated; F10.10 Alcohol abuse, uncomplicated; F13.10 Sedative, hypnotic or anxiolytic abuse, uncomplicated; F41.9 Anxiety disorder, unspecified; F32.A Depression, unspecified; E78.2 Mixed hyperlipidemia; G47.00 Insomnia, unspecified; J45.909 Unspecified asthma, uncomplicated; M54.50 Low back pain, unspecified; G89.29 Other chronic pain; N32.81 Overactive bladder; Z87.891 Personal history of nicotine dependence
CPT/HCPCS: 36415; 80053; 80305; 80307; 85027; 86780; 93005; 93010